=== PATIENT | female | born 1970 | race Caucasian/White ===

== ENCOUNTER 2017-06-29 10:20 | Inpatient (IN) | payer OTHER ==
[~2017-06-29] VITALS: Ht 157.5 cm; Wt 72.2 kg
[2017-06-29 23:00] VITALS: Ht 157.5 cm; Wt 72.2 kg
[2017-06-29 23:03] VITALS: PULSE 77
[2017-06-29 23:08] VITALS: BP 115/62; RESP 19
[2017-06-30] VITALS (12 sets, daily range): BP systolic 95–118; BP diastolic 57–72; PULSE 66–102; RESP 18–19
[2017-06-30] MEDS ORDERED: OMEP20CA16 PO (01:00)
[2017-06-30] MEDS ORDERED: BISACODYL (EC) 5 MG TAB PO PRN (01:00)
[2017-06-30] MEDS ORDERED: DEXAMETHASONE 10 MG/ML 1 ML INJ IV ONE (01:00)
[2017-06-30] MEDS ORDERED: DOCUSATE SODIUM 100 MG CAP PO PRN (01:00)
[2017-06-30] MEDS ORDERED: GABA100C14 PO (01:02)
[2017-06-30] MEDS ORDERED: HYDR200T39 PO (01:04)
[2017-06-30] MEDS ORDERED: MET25 PO (01:05)
[2017-06-30] MEDS ORDERED: PREM625 PO (01:08)
[2017-06-30] MEDS ORDERED: PRED5TAB PO (01:09)
[2017-06-30 01:45] LABS: BASOPHILS % 0.3 % (0.0-2.0); EOSINOPHILS # 0.1 10^3/ul (0.0-0.5); EOSINOPHILS % 0.4 % (0.0-7.0); HEMATOCRIT 43.2 % (37.0-47.0); HEMOGLOBIN 13.9 g/dl (12.0-16.0); LYMPHOCYTES # 1.1 10^3/ul (0.8-2.9); LYMPHOCYTES % 8.8 % (15.0-51.0); MEAN CORPUSCULAR HEMOGLOBIN 29.1 pg (29.0-33.0); MEAN CORPUSCULAR HGB CONC 32.2 g/dl (32.0-37.0); MEAN CORPUSCULAR VOLUME 90.4 fl (82.0-101.0); MEAN PLATELET VOLUME 9.2 fl (7.4-10.4); MONOCYTE # 1.4 10^3/ul (0.3-0.9); MONOCYTES % 11.5 % (0.0-11.0); NEUTROPHIL # 9.5 10^3/ul (1.6-7.5); NEUTROPHILS % 77.8 % (39.0-77.0); PLATELET COUNT 224 10^3/UL (140-415); RED BLOOD COUNT 4.78 10^6/ul (4.20-5.40); RED CELL DISTRIBUTION WIDTH 13.2 % (11.5-14.5); WHITE BLOOD COUNT 12.2 10^3/ul (4.8-10.8)
[2017-06-30] MEDS: ONDANSETRON 4 MG INJ IV PRN ×3 (01:56→21:25)
[2017-06-30] MEDS: KETOROLAC 30 MG INJ IV PRN ×3 (01:57→21:26)
[2017-06-30] MEDS: HYDROmorphONE 1 MG/ML SYG IV PRN ×2 (01:58→05:44)
[2017-06-30 02:07] LABS: ALBUMIN 3.7 g/dl (3.3-4.9); ALBUMIN/GLOBULIN RATIO 0.92; BILIRUBIN,INDIRECT 0.5 mg/dl (0-1.1); BILIRUBIN,TOTAL 0.5 mg/dl (0.2-1.3); CALCIUM 9.7 mg/dl (8.4-10.2); CREATININE 0.71 mg/dl (0.44-1.00); POTASSIUM 3.6 mmol/L (3.5-5.1); TOTAL PROTEIN 7.7 g/dl (6.1-8.1)
[2017-06-30 02:37] LABS: THYROID STIMULATING HORMONE 1.84 MIU/L (0.465-4.680)
[2017-06-30 03:04] LABS: C-REACTIVE PROTEIN 4.4 mg/dl (0.0-0.9)
[2017-06-30] MEDS: DEXAMETHASONE 4 MG/ML 1 ML INJ IV SCH ×3 (05:43→21:25)
[2017-06-30] MEDS ORDERED: PANTOPRAZOLE 40 MG INJ IV SCH (06:00)
--- NOTE | 2017-06-30 08:42 | HP ---
Date/Time of Note Date/Time of Note DATE: 06/30/17 TIME: 08:29 Assessment/Plan VTE Prophylaxis VTE Prophylaxis Intervention: SCD's Lines/Catheters IV Catheter Type (from [facility]): Saline Lock Urinary Cath still in place: No Assessment/Plan Chief Complaint/Hosp Course This is a 47 from a being admitted to the telemetry floor for: #1 intractable back pain: Secondary to degenerative disc disease at L4-L5 resulting in moderately severe canal stenosis with crowding of the cauda equina is seen on MRI of the cease and lumbar spine. At the current time patient does not have any symptoms of saddle anesthesia or urinary incontinence. Her pain though is significant. I will start her on Decadron 10 mg IV loading dose along with Decadron 4 mg IV every 8 hours. Will consult neurosurgery, Dr. Aguila for further treatment strategy. IV Dilaudid prn for pain control and Zofran for nausea. #2 rheumatoid arthritis: We will obtain a fresh set of labs including ESR and CRP. Her lab work from the transferring facility showed ESR level of 18 and a CRP of 4.3. A lactate of 1.4 we will continue patient's home medication dose of methotrexate and Plaquenil though will need to confirm the actual dosages as her records are different from what was provided from [facility]. 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 Hold prednisone right now she is currently on Decadron. #3 DVT and GI prophylaxis: SCDs, Protonix Further treatment strategy will be implemented as per the clinical course Problems: HPI/ROS Admit Date/Time Admit Date/Time Jun 29, 2017 at 10:20 Hx of Present Illness Chief complaint: Back pain This is a 47-year-old female with a past medical history of rheumatoid arthritis diagnosed in 2008 who was transferred from [facility]. Patient was seen there due to severe hand pain, back pain and inability to walk due to pain she had not been able to properly follow up with the rheumatology secondary to insurance issues. She previously was on methotrexate 4 times weekly, [place] 10 mg daily, prednisone 4 mg daily, Plaquenil 300 mg daily. She ran out of her appointment 1 month ago. Her current dosages of her medications is different from what she was on at that time. Will need to confirm dosages or adjust them as indicated. At the current time patient states that she is having difficulty walking and having severe lower back pain. All of [facility] patient had ESR and CRP levels were normal. Imaging studies done with MRIs of the spine C/L-spine which showed no evidence of osteomyelitis discitis or epidural abscess. Cerebellar tonsils extend 5 mm below foramen magnum suggesting borderline Chiari I malformation. Degenerative disc disease at T6-7 that indents the ventral cord surface without cord edema and results in mild canal stenosis. Degenerative disc disease at L4-L5 resulting in moderately severe canal stenosis with crowding of the cauda equina. 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 She was treated at [facility] with morphine 20 mg IV, Ativan 1 mg, Toradol 30 mg and Tylenol 650 mg. This combination of medications did result in somnolence. Patient was considered stable for transfer and she was asked why she was transferred to [facility]. On current examination patient is alert and oriented 3 and she is awake. She is appropriately answering questions. She does state that she has significant amount of lower back pain. She also has pain in her wrist joints. Allergies: NKDA Medications: See HUMPHREY ROS Const: As per HPI Eyes : No pain discharge or redness or change in visual acuity ENT: No pain, sore throat, congestion, congestion, dysphagia or discharge Respiratory: No shortness of breath, cough, sputum, wheezing, or pleuritic pain Cardiovascular: No chest pain, palpitation, PND, or edema GI : no change in appetite, abdominal pain, nausea, vomiting, diarrhea, constipation, or change in the color his stool Genitourinary: No dysuria, hematuria, flank pain , discharge or CVA tenderness Musculoskeletal: As per HPI Skin: No rash, bruising or hives Neuro: No headache, dizziness, syncope, seizure, focal weakness Endocrine: No polyuria, polydipsia, temperature intolerance Psych: No hallucination, depression, anxiety or suicidal ideation PMH/Family/Social Past Medical History Seropositive, nonerosive rheumatoid arthritis Past Surgical History Past Surgical Hx: no surgical history Family History Significant Family History: no pertinent family hx Social History Alcohol Use: none Smoking Status: Never smoker Drug Use: none Exam/Review of Systems Vital Signs Vitals Vital Signs Date Time Temp Pulse Resp B/P Pulse Ox O2 Delivery O2 Flow Rate FiO2 06/30/17 07:42 98.3 73 18 95/57 100 10/5/17 00:00 Nasal Cannula 2.0 Exam Exam General: Patient is a pleasant female lying in moderate distress from pain HEENT: Atraumatic, normocephalic. The pupils are equal, round and reactive. Extraocular motor are intact Neck: Supple with full range of motion. No rigidity or meningismus Chest: Nontender Lungs: Clear to auscultation bilaterally no crackles rales or wheezing Heart: Normal S1-S2, Regular rhythm and rate. No murmur, S3, or S4 Abdomen: Soft , nontender, nondistended , bowel sounds are present. No guarding no rebound tenderness , Extremities: Bilateral wrist pain, mild warmth noted at the wrists bilaterally Neurologic: Normal mental status, speech normal, cranial nerves II through XII are intact, motor and sensory are intact, no focal weakness, no urinary incontinence, no saddle anesthesia musculoskeletal: Tenderness to palpation along the lower lumbar spine, no palpable step-off Additional Comments MRI imaging studies results: MRIs of the spine C/L-spine which showed no evidence of osteomyelitis discitis or epidural abscess. Cerebellar tonsils extend 5 mm below foramen magnum suggesting borderline Chiari I malformation. Degenerative disc disease at T6-7 that indents the ventral cord surface without cord edema and results in mild canal stenosis. Degenerative disc disease at L4-L5 resulting in moderately severe canal stenosis with crowding of the cauda equina. 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 please see transfer augmentation further information as well as CD with imaging studies ESR transferring facility 18, CRP 4.3 please see transfer recommendation further lab results Labs Result Diagram: 06/30/17 0130 06/30/17 0130 Medications Medications Current Medications Ondansetron HCl (Zofran Inj) 4 mg Q6H PRN IV NAUSEA AND/OR VOMITING Last administered on 06/30/17 01:56; Admin Dose 4 MG; Start 06/30/17 at 01:00 Acetaminophen (Tylenol Tab) 650 mg Q6H PRN PO PAIN LEVEL 1-3 OR FEVER; Start 06/30/17 at 01:00 Hydromorphone HCl (Dilaudid) 0.5 mg Q4H PRN IV PAIN LEVEL 7-10 Last administered on 06/30/17 05:44; Admin Dose 0.5 MG; Start 06/30/17 at 01:00 Docusate Sodium (Colace) 100 mg Q12H PRN PO CONSTIPATION; Start 06/30/17 at 01: 00 Bisacodyl (Dulcolax) 5 mg DAILY PRN PO CONSTIPATION; Start 06/30/17 at 01:00 Pantoprazole (Protonix Iv) 40 mg DAILY@06 IV Last administered on 06/30/17 05: 43; Admin Dose 40 MG; Start 06/30/17 at 06:00 Dexamethasone (Decadron) 4 mg Q8 IV Last administered on 06/30/17 05:43; Admin Dose 4 MG; Start 06/30/17 at 06:00 Ketorolac Tromethamine (Toradol) 30 mg Q6H PRN IV PAIN Last administered on 01:57; Admin Dose 30 MG; Start 06/30/17 at 01:00; Stop 07/03/17 at 00:59 Miscellaneous Information Patients own medicat... BID@16 XX ; Start 06/30/17 at 10:00 BAHMAN GIBSON Jun 30, 2017 08:41
[2017-06-30] MEDS: HYDROXYCHLOROQUINE 200 MG TAB PO SCH ×2 (10:26→21:25)
[2017-06-30] MEDS: ACETAMINOPHEN 325 MG TAB PO PRN (11:40)
[2017-06-30] MEDS: ESTROGENS CONJUGATED 0.625 MG TAB PO SCH (17:30)
[2017-07-01] VITALS (12 sets, daily range): BP systolic 90–125; BP diastolic 51–70; PULSE 64–80; RESP 17–20
[2017-07-01 06:04] LABS: BASOPHILS % 0.1 % (0.0-2.0); HEMOGLOBIN 12.8 g/dl (12.0-16.0); LYMPHOCYTES # 0.6 10^3/ul (0.8-2.9); LYMPHOCYTES % 3.1 % (15.0-51.0); MEAN CORPUSCULAR HEMOGLOBIN 28.1 pg (29.0-33.0); MEAN CORPUSCULAR HGB CONC 32.8 g/dl (32.0-37.0); MEAN CORPUSCULAR VOLUME 85.7 fl (82.0-101.0); MEAN PLATELET VOLUME 9.7 fl (7.4-10.4); MONOCYTE # 0.9 10^3/ul (0.3-0.9); MONOCYTES % 4.5 % (0.0-11.0); NEUTROPHIL # 18.4 10^3/ul (1.6-7.5); NEUTROPHILS % 91.5 % (39.0-77.0); PLATELET COUNT 259 10^3/UL (140-415); RED BLOOD COUNT 4.55 10^6/ul (4.20-5.40); RED CELL DISTRIBUTION WIDTH 12.7 % (11.5-14.5); WHITE BLOOD COUNT 20.1 10^3/ul (4.8-10.8)
[2017-07-01] MEDS: PANTOPRAZOLE (EC) 40 MG TAB PO SCH (06:11)
[2017-07-01] MEDS: DEXAMETHASONE 4 MG/ML 1 ML INJ IV SCH ×3 (06:11→21:20)
[2017-07-01 06:30] LABS: MAGNESIUM 2.1 mg/dl (1.7-2.5); PHOSPHORUS 3.7 mg/dl (2.5-4.9)
[2017-07-01] MEDS ORDERED: KETOROLAC 30 MG INJ IV ONE (06:39)
[2017-07-01 06:41] LABS: ALBUMIN 3.6 g/dl (3.3-4.9); ALBUMIN/GLOBULIN RATIO 0.87; BILIRUBIN,INDIRECT 0.2 mg/dl (0-1.1); BILIRUBIN,TOTAL 0.2 mg/dl (0.2-1.3); CALCIUM 9.8 mg/dl (8.4-10.2); CREATININE 0.85 mg/dl (0.44-1.00); POTASSIUM 3.7 mmol/L (3.5-5.1); TOTAL PROTEIN 7.7 g/dl (6.1-8.1)
[2017-07-01] MEDS: METOCLOPRAMIDE 10 MG INJ IV PRN ×3 (06:52→21:20)
[2017-07-01] MEDS: HYDROXYCHLOROQUINE 200 MG TAB PO SCH ×2 (08:17→21:20)
[2017-07-01] MEDS: ESTROGENS CONJUGATED 0.625 MG TAB PO SCH (08:17)
[2017-07-01 08:35] LABS: THYROID STIMULATING HORMONE 0.32 MIU/L (0.465-4.680)
[2017-07-01] MEDS ORDERED: METHOTREXATE 2.5 MG TAB PO SCH (09:00)
[2017-07-01] MEDS: HYDROmorphONE 1 MG/ML SYG IV PRN ×2 (10:45→20:17)
--- NOTE | 2017-07-01 13:20 | PN ---
Date/Time of Note Date/Time of Note DATE: 07/01/17 TIME: 13:20 Assessment/Plan VTE Prophylaxis VTE Prophylaxis Intervention: SCD's Lines/Catheters IV Catheter Type (from Nrsg): Saline Lock Urinary Cath still in place: No Assessment/Plan Assessment/Plan #1 intractable back pain: Secondary to degenerative disc disease at L4-L5 resulting in moderately severe canal stenosis with crowding of the cauda equina is seen on MRI of the cease and lumbar spine. At the current time patient does not have any symptoms of saddle anesthesia or urinary incontinence. Her pain though is significant. continue Decadron 4 mg IV every 8 hours. I left a message on office on [phone] for consultation and evaluation for Abnormal MRI findings, Pt primary Nurse also left a message with Office in AM- will wait for evaluation pain control with IV pain meds,, will wait for PT consult after neurosurgery evaluation. #2 rheumatoid arthritis: pt was on prednisone at home but here currently she is on dexamethasone 4mg IV 8 hr so we will hold off on prednisone, will resume her home dose fo methotrexate and Folic acid along with multivitamind #3 DVT and GI prophylaxis: SCDs, Protonix Subjective 24 Hr Interval Summary Free Text/Dictation c/o back pain, not able to walk, she wants to resume her methotrexate and folic acid with MVI, awaiting neurosurgery consultation by Exam/Review of Systems Vital Signs Vitals Vital Signs Date Time Temp Pulse Resp B/P Pulse Ox O2 Delivery O2 Flow Rate FiO2 07/01/17 12:39 64 07/01/17 11:35 98.3 19 100/61 95 06/30/17 22:20 Nasal Cannula 2.0 Intake and Output 06/30/17 06/30/17 07/01/17 14:59 22:59 06:59 Intake Total 400 ml 900 ml Output Total 950 ml Balance 400 ml -50 ml Exam General: Patient is a pleasant female lying in moderate distress from pain HEENT: Atraumatic, normocephalic. The pupils are equal, round and reactive. Extraocular motor are intact Lungs: Clear to auscultation bilaterally no crackles rales or wheezing Heart: Normal S1-S2, Regular rhythm and rate. No murmur, S3, or S4 Abdomen: Soft , nontender, nondistended , bowel sounds are present. No guarding no rebound tenderness , Extremities: Bilateral wrist pain, mild warmth noted at the wrists bilaterally Neurologic: Normal mental status, speech normal, cranial nerves II through XII are intact, motor and sensory are intact, no focal weakness, no urinary incontinence, no saddle anesthesia musculoskeletal: Tenderness to palpation along the lower lumbar spine, no palpable step-off Results Result Diagram: 07/01/1752707/01/17527 Results 24 hrs Laboratory Tests Test 07/01/17 05:28 White Blood Count 20.1 #H Red Blood Count 4.55 Hemoglobin 12.8 Hematocrit 39.0 Mean Corpuscular Volume 85.7 Mean Corpuscular Hemoglobin 28.1 L Mean Corpuscular Hemoglobin Concent 32.8 Red Cell Distribution Width 12.7 Platelet Count 259 Mean Platelet Volume 9.7 Neutrophils % 91.5 H Lymphocytes % 3.1 L Monocytes % 4.5 Eosinophils % 0.0 Basophils % 0.1 Nucleated Red Blood Cells % 0.0 Neutrophils # 18.4 H Lymphocytes # 0.6 L Monocytes # 0.9 Eosinophils # 0.0 Basophils # 0.0 Nucleated Red Blood Cells # 0.0 Sodium Level 135 Potassium Level 3.7 Chloride Level 99 Carbon Dioxide Level 30 Anion Gap 10 Blood Urea Nitrogen 24 #H Creatinine 0.85 Glucose Level 141 # Hemoglobin A1c 5.4 Calcium Level 9.8 Phosphorus Level 3.7 Magnesium Level 2.1 Total Bilirubin 0.2 Direct Bilirubin 0.00 Indirect Bilirubin 0.2 Aspartate Amino Transf (AST/SGOT) 38 Alanine Aminotransferase (ALT/SGPT) 48 Alkaline Phosphatase 91 Total Protein 7.7 Albumin 3.6 Globulin 4.10 H Albumin/Globulin Ratio 0.87 Triglycerides Level 84 Cholesterol Level 240 H LDL Cholesterol, Calculated 164 HDL Cholesterol 59 Cholesterol/HDL Ratio 4.0 Thyroid Stimulating Hormone (TSH) 0.320 L Medications Medications Current Medications Ondansetron HCl (Zofran Inj) 4 mg Q6H PRN IV NAUSEA AND/OR VOMITING Last administered on 06/30/17 21:25; Admin Dose 4 MG; Start 06/30/17 at 01:00 Acetaminophen (Tylenol Tab) 650 mg Q6H PRN PO PAIN LEVEL 1-3 OR FEVER Last administered on 06/30/17 11:40; Admin Dose 650 MG; Start 06/30/17 at 01:00 Hydromorphone HCl (Dilaudid) 0.5 mg Q4H PRN IV PAIN LEVEL 7-10 Last administered on 07/01/17 10:45; Admin Dose 0.5 MG; Start 06/30/17 at 01:00 Docusate Sodium (Colace) 100 mg Q12H PRN PO CONSTIPATION; Start 06/30/17 at 01: 00 Bisacodyl (Dulcolax) 5 mg DAILY PRN PO CONSTIPATION; Start 06/30/17 at 01:00 Dexamethasone (Decadron) 4 mg Q8 IV Last administered on 07/01/17 06:11; Admin Dose 4 MG; Start 06/30/17 at 06:00 Ketorolac Tromethamine (Toradol) 30 mg Q6H PRN IV PAIN Last administered on 21:26; Admin Dose 30 MG; Start 06/30/17 at 01:00; Stop 07/03/17 at 00:59 Miscellaneous Information Patients own medicat... BID@ XX ; Start 06/30/17 at 10:00 Estrogens Conjugated (Premarin) 0.625 mg DAILY PO Last administered on 08:17; Admin Dose 0.625 MG; Start 06/30/17 at 10:00 Hydroxychloroquine Sulfate (Plaquenil) 200 mg BID PO Last administered on 08:17; Admin Dose 200 MG; Start 06/30/17 at 10:00 Pantoprazole (Protonix Tab) 40 mg DAILY@06 PO Last administered on 07/01/17 06 :11; Admin Dose 40 MG; Start 07/01/17 at 06:00 Metoclopramide HCl (Reglan) 10 mg Q6H PRN IV NAUSEA Last administered on 06:52; Admin Dose 10 MG; Start 07/01/17 at 07:00 Methotrexate (Methotrexate) 12.5 mg ONCE PO ; Start 07/02/17 at 09:00; Status UNV Gabapentin (Neurontin) 100 mg TID PO ; Start 07/01/17 at 21:00; Status UNV Folic Acid (Folic Acid) 1 mg DAILY PO ; Start 07/02/17 at 09:00; Status UNV ROMERO CHAO MD Jul 01, 2017 13:20
[2017-07-01] MEDS ORDERED: FOLIC ACID 1 MG TAB PO ONE (13:30)
[2017-07-01] MEDS: GABAPENTIN 100 MG CAP PO SCH ×2 (13:59→21:20)
[2017-07-01] MEDS: FOLIC ACID 1 MG TAB PO SCH (13:59)
[2017-07-01] MEDS: MULTIVITAMINS THERAPEUTIC TAB PO SCH (13:59)
[2017-07-02] VITALS (11 sets, daily range): BP systolic 98–128; BP diastolic 56–64; PULSE 60–69; RESP 16–19
[2017-07-02] MEDS: METOCLOPRAMIDE 10 MG INJ IV PRN (05:23)
[2017-07-02] MEDS: PANTOPRAZOLE (EC) 40 MG TAB PO SCH (05:23)
[2017-07-02] MEDS: DEXAMETHASONE 4 MG/ML 1 ML INJ IV SCH ×3 (05:23→22:02)
[2017-07-02 07:21] LABS: ABNORMAL IP MESSAGE 1; BASOPHILS % 0.1 % (0.0-2.0); HEMATOCRIT 38.5 % (37.0-47.0); HEMOGLOBIN 12.7 g/dl (12.0-16.0); LYMPHOCYTES # 0.6 10^3/ul (0.8-2.9); LYMPHOCYTES % 3.9 % (15.0-51.0); MEAN CORPUSCULAR HEMOGLOBIN 28.9 pg (29.0-33.0); MEAN CORPUSCULAR VOLUME 87.5 fl (82.0-101.0); MEAN PLATELET VOLUME 9.5 fl (7.4-10.4); MONOCYTE # 0.7 10^3/ul (0.3-0.9); MONOCYTES % 4.8 % (0.0-11.0); NEUTROPHIL # 12.6 10^3/ul (1.6-7.5); NEUTROPHILS % 90.3 % (39.0-77.0); PLATELET COUNT 277 10^3/UL (140-415); RED CELL DISTRIBUTION WIDTH 12.5 % (11.5-14.5)
[2017-07-02 07:25] LABS: POSITIVE DIFF @See below
[2017-07-02 07:34] LABS: ALBUMIN 3.5 g/dl (3.3-4.9); ALBUMIN/GLOBULIN RATIO 0.89; BILIRUBIN,INDIRECT 0.2 mg/dl (0-1.1); BILIRUBIN,TOTAL 0.2 mg/dl (0.2-1.3); CALCIUM 9.4 mg/dl (8.4-10.2); CREATININE 0.77 mg/dl (0.44-1.00); POTASSIUM 4.4 mmol/L (3.5-5.1); TOTAL PROTEIN 7.4 g/dl (6.1-8.1)
[2017-07-02 07:36] LABS: INR 0.91; PROTIME 12.2 Sec (12.2-14.2)
[2017-07-02 07:38] LABS: PARTIAL THROMBOPLASTIN TIME 20.8 Sec (25.0-35.0)
[2017-07-02] MEDS: HYDROmorphONE 1 MG/ML SYG IV PRN ×3 (07:57→18:47)
[2017-07-02] MEDS: MULTIVITAMINS THERAPEUTIC TAB PO SCH (07:58)
[2017-07-02] MEDS: FOLIC ACID 1 MG TAB PO SCH (07:58)
[2017-07-02] MEDS: ESTROGENS CONJUGATED 0.625 MG TAB PO SCH (07:59)
[2017-07-02] MEDS: HYDROXYCHLOROQUINE 200 MG TAB PO SCH ×2 (07:59→20:44)
[2017-07-02] MEDS: GABAPENTIN 100 MG CAP PO SCH ×3 (08:00→20:44)
[2017-07-02] MEDS ORDERED: FOLIC ACID 1 MG TAB PO SCH (09:00)
[2017-07-02] MEDS ORDERED: METHOTREXATE 2.5 MG TAB PO SCH (09:00)
[2017-07-02] MEDS: KETOROLAC 30 MG INJ IV PRN (11:44)
--- NOTE | 2017-07-02 12:35 | CONS ---
Date/Time of Note Date/Time of Note DATE: 07/02/17 TIME: 12:24 Assessment/Plan Assessment/Plan Additional Assessment/Plan Back pain radiating to both thighs without neurologic deficit. Report of L4-5 stenosis. History of RA. Since no imaging is available for review, we will repeat MRI of the lumbar and cervical spine. In the meantime the patient is being treated for presumptive RA flare. Consultation Date/Type/Reason Admit Date/Time Jun 29, 2017 at 10:20 Date of Consultation: Jul 02, 2017 Type of Consultation: Neurological surgery Reason for Consultation back pain, report from outside hospital of possible Chiari 1 malformation and L4 -5 stenosis.Pain is 8-9/ 10 and predominantly in the back, though she complains of some radiatoin to bilateral keturah-lateral thighs- not buttocks, hamstrings, calves or feet. She denies any bowel or bladder complaints. She complains of intermittent numbness of both legs in a stocking type (non-dermatomal) distribution. Hx of Present Illness 47 year old female with 11 year hx of RA, has c/p LBP since . Admitted OSH for same -> MRI shows by report L4-5 stenosis. Pt transfer for spine surgery eval. MRI not sent with patient. Past Surgical History Past Surgical Hx: no surgical history Social History Alcohol Use: none Smoking Status: Never smoker Drug Use: none Exam/Review of Systems Vital Signs Vitals Vital Signs Date Time Temp Pulse Resp B/P Pulse Ox O2 Delivery O2 Flow Rate FiO2 07/02/17 11:48 98.2 67 19 111/59 96 06/30/17 22:20 Nasal Cannula 2.0 Intake and Output 07/01/17 07/01/17 07/02/17 15:00 23:00 07:00 Intake Total 500 ml 800 ml 1200 ml Balance 500 ml 800 ml 1200 ml Exam [id number] PERRL EOMI FACE= TML GRIFFIN 5/5. pain limited. +SLR bilaterally. Sensory exam intact to light touch and proprioception bilaterally Ambulates to bathroom but assessment of gait deferred. Constitutional: alert, oriented Psych: nl mood/affect, no complaints Head: atraumatic, normocephalic Eyes: EOMI, nl conjunctiva, nl lids, nl sclera ENMT: nl external ears & nose, nl lips & teeth, nl nasal mucosa & septum Neck: supple Musculoskeletal: joint tenderness, nl extremities to inspection Neurological: MILEAGE CLERK 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, nl mental status Results Result Diagram: 07/02/17 0654 07/02/17 0654 Results 24 hrs Laboratory Tests Test 07/02/17 06:54 White Blood Count 14.0 #H Red Blood Count 4.40 Hemoglobin 12.7 Hematocrit 38.5 Mean Corpuscular Volume 87.5 Mean Corpuscular Hemoglobin 28.9 L Mean Corpuscular Hemoglobin Concent 33.0 Red Cell Distribution Width 12.5 Platelet Count 277 Mean Platelet Volume 9.5 Neutrophils % 90.3 H Lymphocytes % 3.9 L Monocytes % 4.8 Eosinophils % 0.0 Basophils % 0.1 Nucleated Red Blood Cells % 0.0 Neutrophils # 12.6 H Lymphocytes # 0.6 L Monocytes # 0.7 Eosinophils # 0.0 Basophils # 0.0 Nucleated Red Blood Cells # 0.0 Prothrombin Time 12.2 Prothrombin Time Ratio 1.0 INR International Normalized Ratio 0.91 Activated Partial Thromboplast Time 20.8 L Sodium Level 138 Potassium Level 4.4 Chloride Level 103 Carbon Dioxide Level 30 Anion Gap 9 Blood Urea Nitrogen 22 H Creatinine 0.77 Glucose Level 137 Calcium Level 9.4 Total Bilirubin 0.2 Direct Bilirubin 0.00 Indirect Bilirubin 0.2 Aspartate Amino Transf (AST/SGOT) 24 Alanine Aminotransferase (ALT/SGPT) 38 Alkaline Phosphatase 68 Total Protein 7.4 Albumin 3.5 Globulin 3.90 H Albumin/Globulin Ratio 0.89 Medications Medications Current Medications Ondansetron HCl (Zofran Inj) 4 mg Q6H PRN IV NAUSEA AND/OR VOMITING Last administered on 06/30/17 21:25; Admin Dose 4 MG; Start 06/30/17 at 01:00 Acetaminophen (Tylenol Tab) 650 mg Q6H PRN PO PAIN LEVEL 1-3 OR FEVER Last administered on 06/30/17 11:40; Admin Dose 650 MG; Start 06/30/17 at 01:00 Hydromorphone HCl (Dilaudid) 0.5 mg Q4H PRN IV PAIN LEVEL 7-10 Last administered on 07/02/17 07:57; Admin Dose 0.5 MG; Start 06/30/17 at 01:00 Docusate Sodium (Colace) 100 mg Q12H PRN PO CONSTIPATION; Start 06/30/17 at 01: 00 Bisacodyl (Dulcolax) 5 mg DAILY PRN PO CONSTIPATION; Start 06/30/17 at 01:00 Dexamethasone (Decadron) 4 mg Q8 IV Last administered on 07/02/17 05:23; Admin Dose 4 MG; Start 06/30/17 at 06:00 Ketorolac Tromethamine (Toradol) 30 mg Q6H PRN IV PAIN Last administered on 11:44; Admin Dose 30 MG; Start 06/30/17 at 01:00; Stop 07/03/17 at 00:59 Miscellaneous Information Patients own medicat... BID@10,16 XX ; Start 06/30/17 at 10:00 Estrogens Conjugated (Premarin) 0.625 mg DAILY PO Last administered on 07:59; Admin Dose 0.625 MG; Start 06/30/17 at 10:00 Hydroxychloroquine Sulfate (Plaquenil) 200 mg BID PO Last administered on 07:59; Admin Dose 200 MG; Start 06/30/17 at 10:00 Pantoprazole (Protonix Tab) 40 mg DAILY@06 PO Last administered on 07/02/17 05 :23; Admin Dose 40 MG; Start 07/01/17 at 06:00 Metoclopramide HCl (Reglan) 10 mg Q6H PRN IV NAUSEA Last administered on 05:23; Admin Dose 10 MG; Start 07/01/17 at 07:00 Gabapentin (Neurontin) 100 mg TID PO Last administered on 07/02/17 08:00; Admin Dose 100 MG; Start 07/01/17 at 13:46 Folic Acid (Folic Acid) 1 mg DAILY PO Last administered on 07/02/17 07:58; Admin Dose 1 MG; Start 07/01/17 at 13:46 Multivitamins Therapeutic (Theragran) 1 tab DAILY PO Last administered on 07:58; Admin Dose 1 TAB; Start 07/01/17 at 13:30 JUSTINE FRY MD Jul 02, 2017 12:35
--- NOTE | 2017-07-02 15:24 | PN ---
Date/Time of Note Date/Time of Note DATE: 07/02/17 TIME: 15:22 Assessment/Plan VTE Prophylaxis VTE Prophylaxis Intervention: SCD's Lines/Catheters IV Catheter Type (from Nrsg): Saline Lock Urinary Cath still in place: No Assessment/Plan Assessment/Plan #1 intractable back pain: Secondary to degenerative disc disease at L4-L5 resulting in moderately severe canal stenosis with crowding of the cauda equina is seen on MRI of the cease and lumbar spine. At the current time patient does not have any symptoms of saddle anesthesia or urinary incontinence. Her pain though is significant. continue Decadron 4 mg IV every 8 hours. s/p consultation by - want to have repeat MRI LS Spine to better assess spinal stenosis and cord. pain control with IV pain meds,, will wait for PT consult after neurosurgery evaluation. #2 rheumatoid arthritis: pt was on prednisone at home but here currently she is on dexamethasone 4mg IV 8 hr so we will hold off on prednisone, will resume her home dose fo methotrexate and Folic acid along with multivitamind #3 DVT and GI prophylaxis: SCDs, Protonix Subjective 24 Hr Interval Summary Free Text/Dictation pt stable still c/o pain in lower back and cervical pain Exam/Review of Systems Vital Signs Vitals Vital Signs Date Time Temp Pulse Resp B/P Pulse Ox O2 Delivery O2 Flow Rate FiO2 07/02/17 12:11 64 07/02/17 11:48 98.2 19 111/59 96 06/30/17 22:20 Nasal Cannula 2.0 Intake and Output 07/01/17 07/01/17 07/02/17 15:00 23:00 07:00 Intake Total 500 ml 800 ml 1200 ml Balance 500 ml 800 ml 1200 ml Exam Constitutional: alert Psych: no complaints Head: normocephalic ENMT: nl external ears & nose Neck: non-tender, supple Respiratory: clear to auscultation, diminished breath sounds, normal air movement Cardiovascular: nl pulses, regular rate and rhythm Gastrointestinal: non-tender, soft Musculoskeletal: muscle weakness, nl extremities to inspection, nl gait and stance, range of motion (limited due to back pain ) Extremities: tenderness Neurological: 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, nl mental status, nl speech, nl strength Skin: nl turgor Lymph: nl lymph nodes Results Result Diagram: 10/7/17 0654 10/7/17 0654 Results 24 hrs Laboratory Tests Test 07/02/17 06:54 White Blood Count 14.0 #H Red Blood Count 4.40 Hemoglobin 12.7 Hematocrit 38.5 Mean Corpuscular Volume 87.5 Mean Corpuscular Hemoglobin 28.9 L Mean Corpuscular Hemoglobin Concent 33.0 Red Cell Distribution Width 12.5 Platelet Count 277 Mean Platelet Volume 9.5 Neutrophils % 90.3 H Lymphocytes % 3.9 L Monocytes % 4.8 Eosinophils % 0.0 Basophils % 0.1 Nucleated Red Blood Cells % 0.0 Neutrophils # 12.6 H Lymphocytes # 0.6 L Monocytes # 0.7 Eosinophils # 0.0 Basophils # 0.0 Nucleated Red Blood Cells # 0.0 Prothrombin Time 12.2 Prothrombin Time Ratio 1.0 INR International Normalized Ratio 0.91 Activated Partial Thromboplast Time 20.8 L Sodium Level 138 Potassium Level 4.4 Chloride Level 103 Carbon Dioxide Level 30 Anion Gap 9 Blood Urea Nitrogen 22 H Creatinine 0.77 Glucose Level 137 Calcium Level 9.4 Total Bilirubin 0.2 Direct Bilirubin 0.00 Indirect Bilirubin 0.2 Aspartate Amino Transf (AST/SGOT) 24 Alanine Aminotransferase (ALT/SGPT) 38 Alkaline Phosphatase 68 Total Protein 7.4 Albumin 3.5 Globulin 3.90 H Albumin/Globulin Ratio 0.89 Medications Medications Current Medications Ondansetron HCl (Zofran Inj) 4 mg Q6H PRN IV NAUSEA AND/OR VOMITING Last administered on 06/30/17 21:25; Admin Dose 4 MG; Start 06/30/17 at 01:00 Acetaminophen (Tylenol Tab) 650 mg Q6H PRN PO PAIN LEVEL 1-3 OR FEVER Last administered on 06/30/17 11:40; Admin Dose 650 MG; Start 06/30/17 at 01:00 Hydromorphone HCl (Dilaudid) 0.5 mg Q4H PRN IV PAIN LEVEL 7-10 Last administered on 07/02/17 13:32; Admin Dose 0.5 MG; Start 06/30/17 at 01:00 Docusate Sodium (Colace) 100 mg Q12H PRN PO CONSTIPATION; Start 06/30/17 at 01: 00 Bisacodyl (Dulcolax) 5 mg DAILY PRN PO CONSTIPATION; Start 06/30/17 at 01:00 Dexamethasone (Decadron) 4 mg Q8 IV Last administered on 07/02/17 13:32; Admin Dose 4 MG; Start 06/30/17 at 06:00 Ketorolac Tromethamine (Toradol) 30 mg Q6H PRN IV PAIN Last administered on 11:44; Admin Dose 30 MG; Start 06/30/17 at 01:00; Stop 07/03/17 at 00:59 Miscellaneous Information Patients own medicat... BID@,16 XX ; Start 06/30/17 at 10:00 Estrogens Conjugated (Premarin) 0.625 mg DAILY PO Last administered on 07:59; Admin Dose 0.625 MG; Start 06/30/17 at 10:00 Hydroxychloroquine Sulfate (Plaquenil) 200 mg BID PO Last administered on 07:59; Admin Dose 200 MG; Start 06/30/17 at 10:00 Pantoprazole (Protonix Tab) 40 mg DAILY@06 PO Last administered on 07/02/17 05 :23; Admin Dose 40 MG; Start 07/01/17 at 06:00 Metoclopramide HCl (Reglan) 10 mg Q6H PRN IV NAUSEA Last administered on 05:23; Admin Dose 10 MG; Start 07/01/17 at 07:00 Gabapentin (Neurontin) 100 mg TID PO Last administered on 07/02/17 13:32; Admin Dose 100 MG; Start 07/01/17 at 13:46 Folic Acid (Folic Acid) 1 mg DAILY PO Last administered on 07/02/17 07:58; Admin Dose 1 MG; Start 07/01/17 at 13:46 Multivitamins Therapeutic (Theragran) 1 tab DAILY PO Last administered on 07:58; Admin Dose 1 TAB; Start 07/01/17 at 13:30 ROMERO CHAO MD Jul 02, 2017 15:23
[2017-07-03] VITALS (10 sets, daily range): BP systolic 102–117; BP diastolic 60–74; PULSE 57–69; RESP 15–65
[2017-07-03] MEDS: DEXAMETHASONE 4 MG/ML 1 ML INJ IV SCH ×3 (05:43→22:08)
[2017-07-03] MEDS: PANTOPRAZOLE (EC) 40 MG TAB PO SCH (05:43)
[2017-07-03 07:20] LABS: HEMATOCRIT 38.7 % (37.0-47.0); HEMOGLOBIN 12.4 g/dl (12.0-16.0); LYMPHOCYTES # 0.7 10^3/ul (0.8-2.9); MEAN CORPUSCULAR HEMOGLOBIN 27.9 pg (29.0-33.0); MEAN CORPUSCULAR VOLUME 87.2 fl (82.0-101.0); MEAN PLATELET VOLUME 9.4 fl (7.4-10.4); MONOCYTE # 0.9 10^3/ul (0.3-0.9); MONOCYTES % 7.3 % (0.0-11.0); NEUTROPHIL # 10.3 10^3/ul (1.6-7.5); NEUTROPHILS % 85.9 % (39.0-77.0); PLATELET COUNT 279 10^3/UL (140-415); RED BLOOD COUNT 4.44 10^6/ul (4.20-5.40); RED CELL DISTRIBUTION WIDTH 12.9 % (11.5-14.5); WHITE BLOOD COUNT 11.9 10^3/ul (4.8-10.8)
[2017-07-03 07:32] LABS: ALBUMIN 3.6 g/dl (3.3-4.9); BILIRUBIN,INDIRECT 0.2 mg/dl (0-1.1); BILIRUBIN,TOTAL 0.2 mg/dl (0.2-1.3); CALCIUM 8.9 mg/dl (8.4-10.2); CREATININE 0.67 mg/dl (0.44-1.00); POTASSIUM 4.3 mmol/L (3.5-5.1); TOTAL PROTEIN 7.2 g/dl (6.1-8.1)
[2017-07-03] MEDS: ESTROGENS CONJUGATED 0.625 MG TAB PO SCH (07:48)
[2017-07-03] MEDS: GABAPENTIN 100 MG CAP PO SCH ×3 (07:48→20:39)
[2017-07-03] MEDS: FOLIC ACID 1 MG TAB PO SCH (07:48)
[2017-07-03] MEDS: MULTIVITAMINS THERAPEUTIC TAB PO SCH (07:48)
[2017-07-03] MEDS: HYDROXYCHLOROQUINE 200 MG TAB PO SCH ×2 (07:48→20:39)
[2017-07-03] MEDS: HYDROmorphONE 1 MG/ML SYG IV PRN ×3 (07:49→20:03)
--- NOTE | 2017-07-03 12:21 | PN ---
Date/Time of Note Date/Time of Note DATE: 07/03/17 TIME: 12:18 Assessment/Plan VTE Prophylaxis VTE Prophylaxis Intervention: SCD's Lines/Catheters IV Catheter Type (from Nrsg): Saline Lock Urinary Cath still in place: No Assessment/Plan Assessment/Plan #1 intractable back pain: Secondary to degenerative disc disease at L4-L5 resulting in moderately severe canal stenosis with crowding of the cauda equina is seen on MRI of the cease and lumbar spine. At the current time patient does not have any symptoms of saddle anesthesia or urinary incontinence. Her pain though is significant. continue Decadron 4 mg IV every 8 hours. s/p consultation by - want to have repeat MRI LS Spine to better assess spinal stenosis and cord.still pending pain control with IV pain meds,, will wait for PT consult after neurosurgery evaluation. #2 rheumatoid arthritis: pt was on prednisone at home but here currently she is on dexamethasone 4mg IV 8 hr so we will hold off on prednisone, will resume her home dose fo methotrexate and Folic acid along with multivitamind #3 DVT and GI prophylaxis: SCDs, Protonix Subjective 24 Hr Interval Summary Free Text/Dictation c/o back pain very difficult to ambulat due to pain Exam/Review of Systems Vital Signs Vitals Vital Signs Date Time Temp Pulse Resp B/P Pulse Ox O2 Delivery O2 Flow Rate FiO2 07/03/17 12:03 98.0 68 18 106/65 96 06/30/17 22:20 Nasal Cannula 2.0 Intake and Output 07/02/17 07/02/17 07/03/17 15:00 23:00 07:00 Intake Total 600 ml 200 ml Balance 600 ml 200 ml Exam Constitutional: alert Psych: no complaints Head: normocephalic Eyes: nl conjunctiva ENMT: nl external ears & nose, nl lips & teeth Neck: non-tender, supple Respiratory: clear to auscultation, diminished breath sounds, normal air movement Cardiovascular: nl pulses, regular rate and rhythm Gastrointestinal: non-tender, soft Musculoskeletal: muscle tone (decreased on left side ), muscle weakness, nl extremities to inspection, nl gait and stance, spine non-tender (lumbar spine paraspinal tenderness, no midline tenderness ) Neurological: [employer] 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, nl mental status, nl speech, nl strength, other (gait not assessed due to severe pain ) Results Result Diagram: 07/03/17 0657 07/03/17 0657 Results 24 hrs Laboratory Tests Test 07/03/17 06:57 White Blood Count 11.9 H Red Blood Count 4.44 Hemoglobin 12.4 Hematocrit 38.7 Mean Corpuscular Volume 87.2 Mean Corpuscular Hemoglobin 27.9 L Mean Corpuscular Hemoglobin Concent 32.0 Red Cell Distribution Width 12.9 Platelet Count 279 Mean Platelet Volume 9.4 Neutrophils % 85.9 H Lymphocytes % 6.0 L Monocytes % 7.3 Eosinophils % 0.0 Basophils % 0.0 Nucleated Red Blood Cells % 0.0 Neutrophils # 10.3 H Lymphocytes # 0.7 L Monocytes # 0.9 Eosinophils # 0.0 Basophils # 0.0 Nucleated Red Blood Cells # 0.0 Sodium Level 141 Potassium Level 4.3 Chloride Level 109 Carbon Dioxide Level 25 Anion Gap 11 Blood Urea Nitrogen 18 Creatinine 0.67 Glucose Level 131 Calcium Level 8.9 Total Bilirubin 0.2 Direct Bilirubin 0.00 Indirect Bilirubin 0.2 Aspartate Amino Transf (AST/SGOT) 20 Alanine Aminotransferase (ALT/SGPT) 40 Alkaline Phosphatase 74 Total Protein 7.2 Albumin 3.6 Globulin 3.60 H Albumin/Globulin Ratio 1.00 Medications Medications Current Medications Ondansetron HCl (Zofran Inj) 4 mg Q6H PRN IV NAUSEA AND/OR VOMITING Last administered on 06/30/17 21:25; Admin Dose 4 MG; Start 06/30/17 at 01:00 Acetaminophen (Tylenol Tab) 650 mg Q6H PRN PO PAIN LEVEL 1-3 OR FEVER Last administered on 06/30/17 11:40; Admin Dose 650 MG; Start 06/30/17 at 01:00 Hydromorphone HCl (Dilaudid) 0.5 mg Q4H PRN IV PAIN LEVEL 7-10 Last administered on 07/03/17 07:49; Admin Dose 0.5 MG; Start 06/30/17 at 01:00 Docusate Sodium (Colace) 100 mg Q12H PRN PO CONSTIPATION; Start 06/30/17 at 01: 00 Bisacodyl (Dulcolax) 5 mg DAILY PRN PO CONSTIPATION; Start 06/30/17 at 01:00 Dexamethasone (Decadron) 4 mg Q8 IV Last administered on 07/03/17 05:43; Admin Dose 4 MG; Start 06/30/17 at 06:00 Miscellaneous Information Patients own medicat... BID@10,16 XX ; Start 06/30/17 at 10:00 Estrogens Conjugated (Premarin) 0.625 mg DAILY PO Last administered on 07:48; Admin Dose 0.625 MG; Start 06/30/17 at 10:00 Hydroxychloroquine Sulfate (Plaquenil) 200 mg BID PO Last administered on 07:48; Admin Dose 200 MG; Start 06/30/17 at 10:00 Pantoprazole (Protonix Tab) 40 mg DAILY@06 PO Last administered on 07/03/17 05 :43; Admin Dose 40 MG; Start 07/01/17 at 06:00 Metoclopramide HCl (Reglan) 10 mg Q6H PRN IV NAUSEA Last administered on 05:23; Admin Dose 10 MG; Start 07/01/17 at 07:00 Gabapentin (Neurontin) 100 mg TID PO Last administered on 07/03/17 07:48; Admin Dose 100 MG; Start 07/01/17 at 13:46 Folic Acid (Folic Acid) 1 mg DAILY PO Last administered on 07/03/17 07:48; Admin Dose 1 MG; Start 07/01/17 at 13:46 Multivitamins Therapeutic (Theragran) 1 tab DAILY PO Last administered on 07:48; Admin Dose 1 TAB; Start 07/01/17 at 13:30 ROMERO CHAO MD Jul 03, 2017 12:21
[2017-07-04] VITALS (13 sets, daily range): BP systolic 101–120; BP diastolic 62–71; PULSE 58–69; RESP 16–19
[2017-07-04] MEDS: PANTOPRAZOLE (EC) 40 MG TAB PO SCH (05:56)
[2017-07-04] MEDS: DEXAMETHASONE 4 MG/ML 1 ML INJ IV SCH ×3 (05:56→22:12)
[2017-07-04] MEDS: HYDROmorphONE 1 MG/ML SYG IV PRN ×4 (08:00→22:24)
[2017-07-04 09:01] LABS: BASOPHILS % 0.3 % (0.0-2.0); HEMATOCRIT 41.4 % (37.0-47.0); HEMOGLOBIN 13.6 g/dl (12.0-16.0); LYMPHOCYTES # 0.9 10^3/ul (0.8-2.9); LYMPHOCYTES % 7.5 % (15.0-51.0); MEAN CORPUSCULAR HEMOGLOBIN 28.9 pg (29.0-33.0); MEAN CORPUSCULAR HGB CONC 32.9 g/dl (32.0-37.0); MEAN CORPUSCULAR VOLUME 88.1 fl (82.0-101.0); MEAN PLATELET VOLUME 9.4 fl (7.4-10.4); MONOCYTE # 0.6 10^3/ul (0.3-0.9); MONOCYTES % 5.6 % (0.0-11.0); NEUTROPHIL # 9.4 10^3/ul (1.6-7.5); NEUTROPHILS % 83.2 % (39.0-77.0); PLATELET COUNT 303 10^3/UL (140-415); RED CELL DISTRIBUTION WIDTH 12.5 % (11.5-14.5); WHITE BLOOD COUNT 11.3 10^3/ul (4.8-10.8)
[2017-07-04 09:02] LABS: INR 0.89; PT RATIO 0.9
[2017-07-04 09:09] LABS: ALBUMIN 3.3 g/dl (3.3-4.9); ALBUMIN/GLOBULIN RATIO 0.89; BILIRUBIN,INDIRECT 0.1 mg/dl (0-1.1); BILIRUBIN,TOTAL 0.1 mg/dl (0.2-1.3); CALCIUM 9.6 mg/dl (8.4-10.2); CREATININE 0.71 mg/dl (0.44-1.00); POTASSIUM 4.5 mmol/L (3.5-5.1)
--- NOTE | 2017-07-04 09:48 | RADRPT ---
PROCEDURE: MR Lumbar Spine. CLINICAL INDICATION: Intractable pain, post neurosurgery TECHNIQUE: An MRI of the lumbar spine was performed utilizing the following sequences: Sagittal T 1 weighted, axial proton density, sagittal and axial T2 weighted, and sagittal T2 inversion recovery COMPARISON: 06/28/2017 FINDINGS: There is normal lordosis of the lumbar spine. No vertebral body subluxation is seen. Vertebral bod y heights are maintained. Marrow signal appears normal. There is mild disc space narrowing at L4-L 5.. The conus medullaris is visible at the L1 level and appears grossly normal. L1-L2: There is no disk bulge or protrusion. There is no facet hypertrophy. There is no central c anal or neural foraminal stenosis. L2-L3: There is no disk bulge or protrusion. There is no facet hypertrophy. There is no central c anal or neural foraminal stenosis. L3-L4: There is no disk bulge or protrusion. There is minimal bilateral facet hypertrophy. There is no central canal or neural foraminal stenosis. L4-L5: There is a moderate broad-based disc protrusion extending posteriorly up to 5 mm.. There is moderate to severe bilateral facet hypertrophy. There is mild central canal stenosis, and bilateral lateral recess stenosis, with left greater than right mass effect on the traversing L5 nerve roots. There is mild to moderate right and moderate left neural foraminal stenosis. L5-S1: There is a minimal broad-based disc protrusion. There is mild to moderate bilateral facet hy pertrophy. There is no central canal stenosis. There is no significant neural foraminal stenosis. There is no abnormal paravertebral soft tissue mass. IMPRESSION: 1. 5 mm broad-based disc protrusion at L4-5. Along with moderate to severe bilateral facet hypertrop hy, this produces mild central canal stenosis and bilateral lateral recess stenosis, with left great er than right mass effect on the traversing L5 nerve roots. Moderate left and mild to moderate right neural foraminal stenosis. 2. Minimal disc protrusion and mild to moderate facet hypertrophy at L5-S1. 3. Findings appear not significantly changed from recent prior examination. RPTAT: HBST .Nicola Gutiérrez MD, MD Date Time Electronically viewed and signed by .Nicola Gutiérrez MD, on 07/04/2017 09:47 .T/
[2017-07-04] MEDS: MULTIVITAMINS THERAPEUTIC TAB PO SCH (09:58)
[2017-07-04] MEDS: HYDROXYCHLOROQUINE 200 MG TAB PO SCH ×2 (09:58→20:22)
[2017-07-04] MEDS: FOLIC ACID 1 MG TAB PO SCH (09:58)
[2017-07-04] MEDS: GABAPENTIN 100 MG CAP PO SCH ×3 (09:58→20:22)
[2017-07-04] MEDS: ESTROGENS CONJUGATED 0.625 MG TAB PO SCH (09:58)
--- NOTE | 2017-07-04 10:07 | RADRPT ---
PROCEDURE: MRI cervical spine without contrast CLINICAL INDICATION: Acute intractable neck pain status post neurosurgery, evaluate for cord compre ssion TECHNIQUE: Multiplanar MRI of the cervical spine without contrast was performed on a 3.0 T scanner including the following sequences: T1-weighted, T2-weighted, GRE. COMPARISON: Outside MRI cervical spine 06/28/2017 FINDINGS: There is preservation of the lordosis of the cervical spine. Alignment is intact. The vertebral romeo dies are maintained in height. Marrow signal intensity is unremarkable. Intervertebral discs are ma intained in height. The cervical cord is within normal limits for signal intensity and caliber at al l levels. The craniocervical junction is unremarkable. C2-3: No disk bulge or herniation is identified. There is no central canal stenosis or foraminal na rrowing. C3-4: No disk bulge or herniation is identified. There is no central canal stenosis or foraminal na rrowing. C4-5: A minimal broad posterior disk/osteophyte with mild facet arthropathy are identified without c entral canal stenosis. There is mild bilateral foraminal narrowing. C5-6: No disk bulge or herniation is identified. Mild facet arthropathy is identified. No central c anal stenosis or foraminal narrowing is identified. C6-7: No disk bulge or herniation is identified. Focal ligamentum flavum thickening is seen. Mild f acet arthropathy is identified. No central canal stenosis or foraminal narrowing is identified. C7-T1: No disk bulge or herniation is identified. There is no central canal stenosis or foraminal n arrowing. IMPRESSION: 1. No cervical cord compression; cervical cord within normal limits. 2. Mild cervical spondylosis, without central canal stenosis. 3. Mild bilateral foraminal narrowing at C4-5. RPTAT: VV .Yuriy Guadarrama MD, Date Time Electronically viewed and signed by .Yuriy Guadarrama MD, MD on 07/04/2017 10:07 .O/
--- NOTE | 2017-07-04 16:02 | PN ---
Date/Time of Note Date/Time of Note DATE: 07/04/17 TIME: 15:56 Assessment/Plan VTE Prophylaxis VTE Prophylaxis Intervention: SCD's Lines/Catheters IV Catheter Type (from Nrs): Saline Lock Urinary Cath still in place: No Assessment/Plan Chief Complaint/Hosp Course 1, Intractable back pain with lower extremity weakness secondary to degenerative disc disease at L4-L5 resulting in moderately severe canal stenosis Repeat MRI of the lumbar spine done here shows: 1. 5 mm broad-based disc protrusion at L4-5. Along with moderate to severe bilateral facet hypertrophy, this produces mild central canal stenosis and bilateral lateral recess stenosis, with left greater than right mass effect on the traversing L5 nerve roots. Moderate left and mild to moderate right neural foraminal stenosis. 2. Minimal disc protrusion and mild to moderate facet hypertrophy at L5-S1. 3. Findings appear not significantly changed from recent prior examination -Follow-up with neurosurgery recs, continue Decadron and pain control 2. Rheumatoid arthritis: pt was on prednisone at home but here currently on dexamethasone, -Continue Plaquenil and methotrexate as well as folic acid DVT and GI prophylaxis: SCDs, Protonix Problems: Subjective 24 Hr Interval Summary Musculoskeletal: back pain Exam/Review of Systems Vital Signs Vitals Vital Signs Date Time Temp Pulse Resp B/P Pulse Ox O2 Delivery O2 Flow Rate FiO2 07/04/17 12:18 98.1 65 18 120/63 97 06/30/17 22:20 Nasal Cannula 2.0 Intake and Output 07/03/17 07/03/17 07/04/17 15:00 23:00 07:00 Intake Total 1500 ml 180 ml Balance 1500 ml 180 ml Exam Constitutional: alert, oriented Respiratory: clear to auscultation Cardiovascular: regular rate and rhythm Gastrointestinal: soft, No distended Musculoskeletal: nl extremities to inspection Results Result Diagram: 07/04/17 0813 07/04/17 0813 Results 24 hrs Laboratory Tests Test 07/04/17 08:13 White Blood Count 11.3 H Red Blood Count 4.70 Hemoglobin 13.6 Hematocrit 41.4 Mean Corpuscular Volume 88.1 Mean Corpuscular Hemoglobin 28.9 L Mean Corpuscular Hemoglobin Concent 32.9 Red Cell Distribution Width 12.5 Platelet Count 303 Mean Platelet Volume 9.4 Neutrophils % 83.2 H Lymphocytes % 7.5 L Monocytes % 5.6 Eosinophils % 0.0 Basophils % 0.3 Nucleated Red Blood Cells % 0.0 Neutrophils # 9.4 H Lymphocytes # 0.9 Monocytes # 0.6 Eosinophils # 0.0 Basophils # 0.0 Nucleated Red Blood Cells # 0.0 Prothrombin Time 12.0 L Prothrombin Time Ratio 0.9 INR International Normalized Ratio 0.89 Activated Partial Thromboplast Time 22.0 L Sodium Level 140 Potassium Level 4.5 Chloride Level 107 Carbon Dioxide Level 27 Anion Gap 11 Blood Urea Nitrogen 18 Creatinine 0.71 Glucose Level 105 Calcium Level 9.6 Total Bilirubin 0.1 L Direct Bilirubin 0.00 Indirect Bilirubin 0.1 Aspartate Amino Transf (AST/SGOT) 18 Alanine Aminotransferase (ALT/SGPT) 37 Alkaline Phosphatase 69 Total Protein 7.0 Albumin 3.3 Globulin 3.70 H Albumin/Globulin Ratio 0.89 Medications Medications Current Medications Ondansetron HCl (Zofran Inj) 4 mg Q6H PRN IV NAUSEA AND/OR VOMITING Last administered on 06/30/17 21:25; Admin Dose 4 MG; Start 06/30/17 at 01:00 Acetaminophen (Tylenol Tab) 650 mg Q6H PRN PO PAIN LEVEL 1-3 OR FEVER Last administered on 06/30/17 11:40; Admin Dose 650 MG; Start 06/30/17 at 01:00 Hydromorphone HCl (Dilaudid) 0.5 mg Q4H PRN IV PAIN LEVEL 7-10 Last administered on 07/04/17 13:04; Admin Dose 0.5 MG; Start 06/30/17 at 01:00 Docusate Sodium (Colace) 100 mg Q12H PRN PO CONSTIPATION; Start 06/30/17 at 01: 00 Bisacodyl (Dulcolax) 5 mg DAILY PRN PO CONSTIPATION; Start 06/30/17 at 01:00 Dexamethasone (Decadron) 4 mg Q8 IV Last administered on 07/04/17 13:43; Admin Dose 4 MG; Start 06/30/17 at 06:00 Miscellaneous Information Patients own medicat... BID@10,16 XX ; Start 06/30/17 at 10:00 Estrogens Conjugated (Premarin) 0.625 mg DAILY PO Last administered on 09:58; Admin Dose 0.625 MG; Start 06/30/17 at 10:00 Hydroxychloroquine Sulfate (Plaquenil) 200 mg BID PO Last administered on 09:58; Admin Dose 200 MG; Start 06/30/17 at 10:00 Pantoprazole (Protonix Tab) 40 mg DAILY@06 PO Last administered on 07/04/17 05 :56; Admin Dose 40 MG; Start 07/01/17 at 06:00 Metoclopramide HCl (Reglan) 10 mg Q6H PRN IV NAUSEA Last administered on 05:23; Admin Dose 10 MG; Start 07/01/17 at 07:00 Gabapentin (Neurontin) 100 mg TID PO Last administered on 07/04/17 13:04; Admin Dose 100 MG; Start 07/01/17 at 13:46 Folic Acid (Folic Acid) 1 mg DAILY PO Last administered on 07/04/17 09:58; Admin Dose 1 MG; Start 07/01/17 at 13:46 Multivitamins Therapeutic (Theragran) 1 tab DAILY PO Last administered on 09:58; Admin Dose 1 TAB; Start 07/01/17 at 13:30 JO-ANN EDWARDS Jul 04, 2017 16:02
--- NOTE | 2017-07-04 19:11 | QN ---
Documentation Comment Repeat MRI at [facility]: "1. 5 mm broad-based disc protrusion at L4-5. Along with moderate to severe bilateral facet hypertrophy, this produces mild central canal stenosis and bilateral lateral recess stenosis, with left greater than right mass effect on the traversing L5 nerve roots. Moderate left and mild to moderate right neural foraminal stenosis." This is consistent with my reading of the MRI and is not consistent with cauda equina syndrome. The patient has low back pain in the setting of RA. She also complains of other joint pain. There is no indication for urgent neurosurgical intervention for this patient. She is welcome to follow pu with me as an outpatient once cleared for discharge by the primary team. JUSTINE FRY MD Jul 04, 2017 19:11
[2017-07-05] VITALS (11 sets, daily range): BP systolic 102–133; BP diastolic 65–77; PULSE 53–62; RESP 16–21
[2017-07-05] MEDS: PANTOPRAZOLE (EC) 40 MG TAB PO SCH (05:36)
[2017-07-05] MEDS: DEXAMETHASONE 4 MG/ML 1 ML INJ IV SCH ×3 (05:36→21:12)
[2017-07-05] MEDS: HYDROmorphONE 1 MG/ML SYG IV PRN ×4 (05:41→17:39)
[2017-07-05] MEDS: FOLIC ACID 1 MG TAB PO SCH (09:22)
[2017-07-05] MEDS: MULTIVITAMINS THERAPEUTIC TAB PO SCH (09:22)
[2017-07-05] MEDS: HYDROXYCHLOROQUINE 200 MG TAB PO SCH ×2 (09:22→21:06)
[2017-07-05] MEDS: ESTROGENS CONJUGATED 0.625 MG TAB PO SCH (09:22)
[2017-07-05] MEDS: GABAPENTIN 100 MG CAP PO SCH ×3 (09:22→21:06)
--- NOTE | 2017-07-05 09:59 | PDOCDIS ---
Discharge Instructions CONDITION Patient Condition: Good HOME CARE INSTRUCTIONS: Diet Instructions: Regular ACTIVITY: Activity Restrictions: No Restrictions FOLLOW UP/APPOINTMENTS Follow-up Plan F/U WITH YOUR PCP IN 1-2 WEEKS JO-ANN EDWARDS Jul 05, 2017 09:59
[2017-07-05] MEDS: ACETAMINOPHEN 325 MG TAB PO PRN (14:49)
--- NOTE | 2017-07-05 15:30 | PN ---
Date/Time of Note Date/Time of Note DATE: 07/05/17 TIME: 15:28 Assessment/Plan VTE Prophylaxis VTE Prophylaxis Intervention: SCD's Lines/Catheters IV Catheter Type (from Nrs): Saline Lock Urinary Cath still in place: No Assessment/Plan Chief Complaint/Hosp Course 1, Intractable back pain with lower extremity weakness secondary to degenerative disc disease at L4-L5 resulting in moderately severe canal stenosis -Repeat MRI of the lumbar spine done here shows: 1. 5 mm broad-based disc protrusion at L4-5. Along with moderate to severe bilateral facet hypertrophy, this produces mild central canal stenosis and bilateral lateral recess stenosis, with left greater than right mass effect on the traversing L5 nerve roots. Moderate left and mild to moderate right neural foraminal stenosis. 2. Minimal disc protrusion and mild to moderate facet hypertrophy at L5-S1. 3. Findings appear not significantly changed from recent prior examination -Neurosurgery stating no indication for emergent surgery -continue Decadron and pain control as patient still suffering from severe back pain, downgrade to med surge -PT eval 2. Rheumatoid arthritis: pt was on prednisone at home but here currently on dexamethasone, -Continue Plaquenil and methotrexate as well as folic acid DVT and GI prophylaxis: SCDs, Protonix Problems: Subjective 24 Hr Interval Summary Musculoskeletal: back pain Exam/Review of Systems Vital Signs Vitals Vital Signs Date Time Temp Pulse Resp B/P Pulse Ox O2 Delivery O2 Flow Rate FiO2 07/05/17 12:21 97.8 69 18 110/73 97 Intake and Output 07/04/17 07/04/17 07/05/17 15:00 23:00 07:00 Intake Total 2000 ml 400 ml Balance 2000 ml 400 ml Exam Constitutional: alert, oriented Respiratory: clear to auscultation Cardiovascular: regular rate and rhythm Gastrointestinal: soft, No distended Musculoskeletal: nl extremities to inspection Results Result Diagram: 07/04/1781207/04/17812 Medications Medications Current Medications Ondansetron HCl (Zofran Inj) 4 mg Q6H PRN IV NAUSEA AND/OR VOMITING Last administered on 06/30/17 21:25; Admin Dose 4 MG; Start 06/30/17 at 01:00 Acetaminophen (Tylenol Tab) 650 mg Q6H PRN PO PAIN LEVEL 1-3 OR FEVER Last administered on 07/05/17 14:49; Admin Dose 650 MG; Start 06/30/17 at 01:00 Hydromorphone HCl (Dilaudid) 0.5 mg Q4H PRN IV PAIN LEVEL 7-10 Last administered on 07/05/17 13:15; Admin Dose 0.5 MG; Start 06/30/17 at 01:00 Docusate Sodium (Colace) 100 mg Q12H PRN PO CONSTIPATION; Start 06/30/17 at 01: 00 Bisacodyl (Dulcolax) 5 mg DAILY PRN PO CONSTIPATION; Start 06/30/17 at 01:00 Dexamethasone (Decadron) 4 mg Q8 IV Last administered on 07/05/17 14:40; Admin Dose 4 MG; Start 06/30/17 at 06:00 Miscellaneous Information Patients own medicat... BID@16 XX ; Start 06/30/17 at 10:00 Estrogens Conjugated (Premarin) 0.625 mg DAILY PO Last administered on 09:22; Admin Dose 0.625 MG; Start 06/30/17 at 10:00 Hydroxychloroquine Sulfate (Plaquenil) 200 mg BID PO Last administered on 07/05 09:22; Admin Dose 200 MG; Start 06/30/17 at 10:00 Pantoprazole (Protonix Tab) 40 mg DAILY@06 PO Last administered on 07/05/17 05:36; Admin Dose 40 MG; Start 07/01/17 at 06:00 Metoclopramide HCl (Reglan) 10 mg Q6H PRN IV NAUSEA Last administered on 05:23; Admin Dose 10 MG; Start 07/01/17 at 07:00 Gabapentin (Neurontin) 100 mg TID PO Last administered on 07/05/17 13:15; Admin Dose 100 MG; Start 07/01/17 at 13:46 Folic Acid (Folic Acid) 1 mg DAILY PO Last administered on 07/05/17 09:22; Admin Dose 1 MG; Start 07/01/17 at 13:46 Multivitamins Therapeutic (Theragran) 1 tab DAILY PO Last administered on 07/05 09:22; Admin Dose 1 TAB; Start 07/01/17 at 13:30 JO-ANN EDWARDS Jul 05, 2017 15:30
[2017-07-05] MEDS: KETOROLAC 30 MG INJ IV PRN (21:05)
[2017-07-06 02:56] VITALS: BP 106/65; RESP 18
[2017-07-06] MEDS: DEXAMETHASONE 4 MG/ML 1 ML INJ IV SCH ×3 (05:36→21:26)
[2017-07-06] MEDS: PANTOPRAZOLE (EC) 40 MG TAB PO SCH (05:36)
[2017-07-06] MEDS: KETOROLAC 30 MG INJ IV PRN ×2 (07:53→15:54)
[2017-07-06 08:00] VITALS: BP 109/76; RESP 20
[2017-07-06] MEDS: HYDROmorphONE 1 MG/ML SYG IV PRN (09:14)
[2017-07-06] MEDS: GABAPENTIN 100 MG CAP PO SCH ×3 (09:14→21:24)
[2017-07-06] MEDS: HYDROXYCHLOROQUINE 200 MG TAB PO SCH ×2 (09:14→21:24)
[2017-07-06] MEDS: MULTIVITAMINS THERAPEUTIC TAB PO SCH (09:14)
[2017-07-06] MEDS: FOLIC ACID 1 MG TAB PO SCH (09:14)
[2017-07-06] MEDS: ESTROGENS CONJUGATED 0.625 MG TAB PO SCH (09:14)
[2017-07-06 14:00] VITALS: BP 111/71; RESP 18
[2017-07-06] MEDS ORDERED: BACLOFEN 10 MG TAB PO ONE (15:30)
--- NOTE | 2017-07-06 19:16 | PN ---
Date/Time of Note Date/Time of Note DATE: 07/06/17 TIME: 19:15 Assessment/Plan VTE Prophylaxis VTE Prophylaxis Intervention: SCD's Lines/Catheters IV Catheter Type (from Nrs): Saline Lock Urinary Cath still in place: No Assessment/Plan Chief Complaint/Hosp Course 1, Intractable back pain with lower extremity weakness secondary to degenerative disc disease at L4-L5 resulting in moderately severe canal stenosis -Repeat MRI of the lumbar spine done here shows: 1. 5 mm broad-based disc protrusion at L4-5. Along with moderate to severe bilateral facet hypertrophy, this produces mild central canal stenosis and bilateral lateral recess stenosis, with left greater than right mass effect on the traversing L5 nerve roots. Moderate left and mild to moderate right neural foraminal stenosis. 2. Minimal disc protrusion and mild to moderate facet hypertrophy at L5-S1. 3. Findings appear not significantly changed from recent prior examination -Neurosurgery stating no indication for emergent surgery -continue Decadron and pain control as patient still suffering from severe back pain, downgrade to med surge -PT eval -Lumbar muscles are tender to palpation, start baclofen 2. Rheumatoid arthritis: pt was on prednisone at home but here currently on dexamethasone, -Continue Plaquenil and methotrexate as well as folic acid DVT and GI prophylaxis: SCDs, Protonix Problems: Subjective 24 Hr Interval Summary Musculoskeletal: back pain Exam/Review of Systems Vital Signs Vitals Vital Signs Date Time Temp Pulse Resp B/P Pulse Ox O2 Delivery O2 Flow Rate FiO2 07/06/17 14:00 98.6 84 18 111/71 96 07/05/17 17:28 Room Air Intake and Output 07/05/17 07/05/17 07/06/17 15:00 23:00 07:00 Intake Total 120 ml 500 ml Balance 120 ml 500 ml Exam Constitutional: alert, oriented Respiratory: clear to auscultation Cardiovascular: regular rate and rhythm Gastrointestinal: soft, No distended Musculoskeletal: other (Tenderness to palpation in the lumbar muscles) Results Result Diagram: 07/04/1781207/04/17812 Medications Medications Current Medications Ondansetron HCl (Zofran Inj) 4 mg Q6H PRN IV NAUSEA AND/OR VOMITING Last administered on 06/30/17t 21:25; Admin Dose 4 MG; Start 06/30/17 at 01:00 Acetaminophen (Tylenol Tab) 650 mg Q6H PRN PO PAIN LEVEL 1-3 OR FEVER Last administered on 07/05/17 14:49; Admin Dose 650 MG; Start 06/30/17 at 01:00 Hydromorphone HCl (Dilaudid) 0.5 mg Q4H PRN IV PAIN LEVEL 7-10 Last administered on 07/06/17 09:14; Admin Dose 0.5 MG; Start 06/30/17 at 01:00 Docusate Sodium (Colace) 100 mg Q12H PRN PO CONSTIPATION; Start 06/30/17 at 01: 00 Bisacodyl (Dulcolax) 5 mg DAILY PRN PO CONSTIPATION; Start 06/30/17 at 01:00 Dexamethasone (Decadron) 4 mg Q8 IV Last administered on 07/06/17 13:08; Admin Dose 4 MG; Start 06/30/17 at 06:00 Miscellaneous Information Patients own medicat... BID@10,16 XX ; Start 06/30/17 at 10:00 Estrogens Conjugated (Premarin) 0.625 mg DAILY PO Last administered on 09:14; Admin Dose 0.625 MG; Start 06/30/17 at 10:00 Hydroxychloroquine Sulfate (Plaquenil) 200 mg BID PO Last administered on 07/06 09:14; Admin Dose 200 MG; Start 06/30/17 at 10:00 Pantoprazole (Protonix Tab) 40 mg DAILY@06 PO Last administered on 07/06/17 05:36; Admin Dose 40 MG; Start 07/01/17 at 06:00 Metoclopramide HCl (Reglan) 10 mg Q6H PRN IV NAUSEA Last administered on 05:23; Admin Dose 10 MG; Start 07/01/17 at 07:00 Gabapentin (Neurontin) 100 mg TID PO Last administered on 07/06/17 13:08; Admin Dose 100 MG; Start 07/01/17 at 13:46 Folic Acid (Folic Acid) 1 mg DAILY PO Last administered on 07/06/17 09:14; Admin Dose 1 MG; Start 07/01/17 at 13:46 Multivitamins Therapeutic (Theragran) 1 tab DAILY PO Last administered on 07/06 09:14; Admin Dose 1 TAB; Start 07/01/17 at 13:30 Ketorolac Tromethamine (Toradol) 30 mg Q6H PRN IV PAIN Last administered on t 15:54; Admin Dose 30 MG; Start 07/05/17 at 20:30; Stop 07/08/17 at 20: 29 JO-ANN EDWARDS Jul 06, 2017 19:16
[2017-07-06 20:12] VITALS: BP 104/67; RESP 22
[2017-07-07 02:58] VITALS: BP 105/68; RESP 20
[2017-07-07] MEDS: KETOROLAC 30 MG INJ IV PRN (03:06)
[2017-07-07] MEDS: PANTOPRAZOLE (EC) 40 MG TAB PO SCH (05:45)
[2017-07-07] MEDS: DEXAMETHASONE 4 MG/ML 1 ML INJ IV SCH ×2 (05:45→13:30)
[2017-07-07 07:30] VITALS: BP 110/69; RESP 18
[2017-07-07] MEDS: ESTROGENS CONJUGATED 0.625 MG TAB PO SCH (08:27)
[2017-07-07] MEDS: HYDROXYCHLOROQUINE 200 MG TAB PO SCH (08:27)
[2017-07-07] MEDS: MULTIVITAMINS THERAPEUTIC TAB PO SCH (08:27)
[2017-07-07] MEDS: GABAPENTIN 100 MG CAP PO SCH ×2 (08:27→13:08)
[2017-07-07] MEDS: FOLIC ACID 1 MG TAB PO SCH (08:27)
[2017-07-07] MEDS: HYDROmorphONE 1 MG/ML SYG IV PRN (08:33)
[2017-07-07] MEDS: BACLOFEN 10 MG TAB PO SCH ×2 (08:33→13:08)
[2017-07-07] MEDS: NACL 0.9% 3 ML SYG IV SCH ×2 (08:34→13:30)
[2017-07-07] MEDS ORDERED: HYDROmorphONE 0.5 MG/0.5 ML SYG IV PRN (11:30)
[2017-07-07 13:35] LABS: ADD UMIC NO; UR ASCORBIC ACID NEGATIVE (NEGATIVE); UR BILIRUBIN (Dip) NEGATIVE (NEGATIVE); UR BLOOD (Dip) NEGATIVE (NEGATIVE); UR CLARITY CLEAR (CLEAR); UR COLOR YELLOW (YELLOW); UR GLUCOSE (Dip) NEGATIVE (NEGATIVE); UR KETONES (Dip) NEGATIVE (NEGATIVE); UR LEUKOCYTE ESTERASE (Dip) NEGATIVE Leu/ul (NEGATIVE); UR NITRITE (Dip) NEGATIVE (NEGATIVE); UR SPECIFIC GRAVITY (Dip) 1.004 (1.003-1.030); UR TOTAL PROTEIN (Dip) NEGATIVE (NEGATIVE); UR UROBILINOGEN (Dip) NEGATIVE (NEGATIVE)
[2017-07-07 14:04] VITALS: BP 96/64; RESP 18
[2017-07-07] MEDS ORDERED: BACL10TA PO (15:17)
[2017-07-07] MEDS ORDERED: HYDR-906 PO (15:17)
--- NOTE | 2017-07-07 15:29 | DS ---
Date/Time of Note Date/Time of Note DATE: 07/07/17 TIME: 15:18 Discharge Summary Admission/Discharge Info Admit Date/Time Jun 29, 2017 at 10:20 Discharge Date/Time July 07, 2017 Discharge Diagnosis 1, Intractable back pain with lower extremity weakness secondary to degenerative disc disease at L4-L5 resulting in moderately severe canal stenosis -Pain now improved with steroids and muscle relaxers as well as opiates -Repeat MRI of the lumbar spine done here shows: 1. 5 mm broad-based disc protrusion at L4-5. Along with moderate to severe bilateral facet hypertrophy, this produces mild central canal stenosis and bilateral lateral recess stenosis, with left greater than right mass effect on the traversing L5 nerve roots. Moderate left and mild to moderate right neural foraminal stenosis. 2. Minimal disc protrusion and mild to moderate facet hypertrophy at L5-S1. 3. Findings appear not significantly changed from recent prior examination -Neurosurgery stating no indication for emergent surgery -Status post Decadron -PT eval appreciated -Lumbar muscles are tender to palpation, improved with baclofen 2. Rheumatoid arthritis: -Continue Plaquenil and methotrexate as well as folic acid and prednisone 3. Dysuria UA is normal Patient Condition: Good Hospital Course Patient is a 47-year-old female with a past medical history of rheumatoid arthritis diagnosed in 2008 who was transferred from [facility]. Patient was seen there due to severe hand pain, back pain and inability to walk due to pain she had not been able to properly follow up with the rheumatology secondary to insurance issues. She previously was on methotrexate 4 times weekly, [place] 10 mg daily, prednisone 4 mg daily, Plaquenil 300 mg daily. Patient was seen by neurosurgery, repeat MRI was done which showed: 1. 5 mm broad-based disc protrusion at L4-5. Along with moderate to severe bilateral facet hypertrophy, this produces mild central canal stenosis and bilateral lateral recess stenosis: with left greater than right mass effect on the traversing L5 nerve roots. Moderate left and mild to moderate right neural foraminal stenosis. 2. Minimal disc protrusion and mild to moderate facet hypertrophy at L5-S1. 3. Findings appear not significantly changed from recent prior examination MRI was reviewed by neurosurgery and it was felt that there is no indication for emergent surgery at this time. Patient was receiving Decadron IV throughout hospitalization and her lower extreme weakness and back pain did improve. It was noted that patient muscular pain lumbar region, she was given baclofen and pain did improve significantly. Patient did report dysuria, UA was checked and was normal. She did work with PT and patient was able to ambulate, recommendation was for patient to follow-up with her primary care physician as well as her polysomnography technician for further care of her rheumatoid arthritis. On the discharge patient's vitals, labs and physical exam were stable she no further acute complaints and questions are answered. Home Meds Active Scripts Hydrocodone/Acetaminophen ([place] 5-325 Tablet) 1 Each Tablet, 1 EACH PO Q4 for PAIN, #30 TAB Prov:JO-ANN EDWARDS 07/07/17 Baclofen* (Baclofen*) 10 Mg Tablet, 10 MG PO Q8 Y for MUSCLE SPASMS, #60 TAB Prov:JO-ANN EDWARDS 07/07/17 Reported Medications Prednisone* (Prednisone*) 5 Mg Tab, 5 MG PO DAILY, TAB 06/30/17 Estrogens Conjugated* (Premarin*) 0.625 Mg Tab, 0.625 MG PO DAILY, TAB 06/30/17 Methotrexate* (Methotrexate*) 2.5 Mg Tab, 2.5 MG PO MONWEDFRI, TAB 06/30/17 Hydroxychloroquine Sulfate* (Hydroxychloroquine Sulfate*) 200 Mg Tablet, 200 MG PO BID, TAB 06/30/17 Gabapentin* (Gabapentin*) 100 Mg Capsule, 100 MG PO TID, #90 CAP 06/30/17 Omeprazole* (Omeprazole*) 20 Mg Capsule.dr, 20 MG PO AC BREAKFAST, #30 CAP 06/30/17 Follow-up Plan F/U WITH YOUR PCP IN 1-2 WEEKS Primary Care Provider [facility] Time spent on discharge: > 30 minutes JO-ANN EDWARDS Jul 07, 2017 15:28
== END 2017-07-07 17:35 | disposition home or self-care (01) | DRG 552 ==
LOC: MS4 10:20 → PP2 07-05 16:58
PROVIDERS: ADMIT Internal Medicine; ATTEND Internal Medicine
DX: M51.36 Other intervertebral disc degeneration, lumbar region (principal); M06.9 Rheumatoid arthritis, unspecified; M48.061 Spinal stenosis, lumbar region without neurogenic claudication; M51.27 Other intervertebral disc displacement, lumbosacral region; R30.0 Dysuria
CPT/HCPCS: 72141; 72148; 80053; 80061; 81003; 83036; 83735; 84100; 84443; 85025; 85610; 85651; 85730; 86140; 87081; 87086; 97161; C9113; J1100; J1170; J1885; J2405; J2765

== ENCOUNTER 2017-07-14 11:29 | Outpatient (CLI) | payer OTHER ==
[~2017-07-14 11:29] MED LIST: BACL10TA PO; GABA100C14 PO; HYDR-906 PO; HYDR200T39 PO; MET25 PO; OMEP20CA16 PO; PRED5TAB PO; PREM625 PO
--- NOTE | 2017-07-14 15:58 | PN ---
Date/Time of Note Date/Time of Note DATE: 07/14/17 TIME: 15:53 Outpatient Progress Note Chief Complaint Back pain/rheumatoid arthritis/UTI/PUD HPI Back pain/patient has moderately severe back pain, patient has pain score 8 out of 10, pain reduces with pain medication, patient running out of medication, No loss of bladder or bowel control, Rheumatoid arthritis/patient has joint pain and stiffness, difficulty in walking , UTI/patient has dysuria which has improved significantly, and present no dysuria , PUD/no heartburn, no nausea or vomiting, hematemesis or melena, Review of Systems Const: No Fever, no chills, no Wt. loss, no Fatigue, normal appetite, no diaphoresis. Eyes: No pain, no discharge, no redness, no visual change, no foreign body. ENT: No pain, no bleeding, no congestion, no sore throat, no dysphagia, no discharge or rhinitis. Lymph: No adenopathy, no tender nodes, no lymphedema. Resp: No SOB, no cough, no sputum, no wheezing, no chest pain. CV: No chest pain, no palpitaions, no MEJIA, no PND, no edema. GI: Normal appetite, no pain, no nausea, no vomiting, no diarrhea, no blood, no constipation. : No frequency, no urgency, no dysuria, no hematuria, no flank pain, no discharge, no bleeding. Musc: Moderately severe back pain, no neck pain, bilateral mild knee pain, no restricted ROM. Skin: No rash, no skin lesions, no erythema, no laceration, no bruising, no pruritus. Neuro: No GONZALEZ, no dizziness, no syncope, no seizure, no focal-weakness. Endo: No polyuria, no polydypsia, no dry-skin, no temp-intolerance. Psych: No hallucinations, no depression, no anxiety, no suicidal ideation. Ext: No edema, joint pain, no ulcer, no weakness. Physical Exam General Appearance: A 47 year-old female who appears well-developed, well- nourished, in no acute distress. HEENT: Head normocephalic, atraumatic. Pupils equal, round, reactive to light and accommodate. Sclerae are no jaundice. Nasal turbinates pink without erythema or nasal discharge. Mucous membranes pink and moist without lesions. Oropharynx clear without any exudate or discharge. NECK: Supple. Trachea midline, No thyromegaly, No cervical lymphadenopathy, No mass, No carotid bruits, No JVD, Carotid pulses 2+ bilaterally. PULMONARY: Clear to auscultaion bilaterally, No retractions, Chest expansion symmetric bilaterally, no rales, no ronchi, no dulness on percussion. CARDIAC: Normal SI and S2, Regular rate and rythm, no murmur, gallop, or rub. GASTROINTESTINAL: Abdomen is soft, non-tender, Non Rigid, No distention, Positive bowel sounds x4 quadrants, Liver normal. SKIN: Warm, dry, no rash, no bruise, no echmosis. EXTREMITIES: Bilateral lower extremities normal, no edema, no phlabitus, pulse palpable, no contracture. MUSCULOSKELETAL: Spine Normal, moderately severe lumbosacral discomfort, increased with activity, reduced with rest,, Normal range of motion, No swelling , no deformity, no clubbing, or cyanosis, the patient has no edema to bilateral lower extremities, dorsalis pedis pulses palpable bilaterally. NEUROLOGIC: The patient is awake, alert, oriented, responding to yes/no questions appropriately, moving all extremities, cranial nerve intact, normal strenght, normal power, normal coordination, normal gait. Allergies Coded Allergies: No Known Allergy (Unverified , 06/29/17) PMH Back pain/herniated disc/rheumatoid arthritis/PUD Social Hx No smoking no drinking, Family Hx Noncontributory Assessment/Plan Impression Back pain/herniated disc Rheumatoid arthritis History of UTI PUD Plan Patient education done, patient increase activity slowly, no lifting or pulling or pushing, Patient running out of medication, will continue [place] 5/325 every 4 hour #60 Patient advised to lose weight slightly, Patient encouraged to follow with the primary care physician, Patient also encouraged to follow with the orthopedic, Medications Home Meds Active Scripts Hydrocodone/Acetaminophen ([place] 5-325 Tablet) 1 Each Tablet, 1 EACH PO Q4 for PAIN, #30 TAB Prov:JO-ANN EDWARDS 07/07/17 Baclofen* (Baclofen*) 10 Mg Tablet, 10 MG PO Q8 Y for MUSCLE SPASMS, #60 TAB Prov:JO-ANN EDWARDS 07/07/17 Reported Medications Prednisone* (Prednisone*) 5 Mg Tab, 5 MG PO DAILY, TAB 06/30/17 Estrogens Conjugated* (Premarin*) 0.625 Mg Tab, 0.625 MG PO DAILY, TAB 06/30/17 Methotrexate* (Methotrexate*) 2.5 Mg Tab, 2.5 MG PO MONWEDFRI, TAB 06/30/17 Hydroxychloroquine Sulfate* (Hydroxychloroquine Sulfate*) 200 Mg Tablet, 200 MG PO BID, TAB 06/30/17 Gabapentin* (Gabapentin*) 100 Mg Capsule, 100 MG PO TID, #90 CAP 06/30/17 Omeprazole* (Omeprazole*) 20 Mg Capsule., 20 MG PO AC BREAKFAST, #30 CAP 06/30/17 SANJAY CHAO MD Jul 14, 2017 15:58
== END 2017-07-14 15:51 | disposition home or self-care (01) ==
LOC: DCC 11:29
PROVIDERS: ATTEND Internal Medicine
DX: K27.9 Peptic ulcer, site unspecified, unspecified as acute or chronic, without hemorrhage or perforation (principal); M51.26 Other intervertebral disc displacement, lumbar region; M06.9 Rheumatoid arthritis, unspecified; Z87.440 Personal history of urinary (tract) infections; M25.562 Pain in left knee; M25.561 Pain in right knee
CPT/HCPCS: G0463

== ENCOUNTER 2017-07-28 11:44 | Outpatient (CLI) | payer OTHER ==
[~2017-07-28] VITALS: Ht 157.5 cm; Wt 70.9 kg
[2017-07-28 11:56] VITALS: BP 118/81; PULSE 74; RESP 16; Ht 157.5 cm; Wt 70.9 kg
--- NOTE | 2017-07-28 12:43 | PN ---
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 loss, no Fatigue, normal appetite, no diaphoresis. Eyes: No pain, no discharge, no redness, no visual change, no foreign body. ENT: No pain, no bleeding, no congestion, no sore throat, no dysphagia, no discharge or rhinitis. Lymph: No adenopathy, no tender nodes, no lymphedema. Resp: No SOB, no cough, no sputum, no wheezing, no chest pain. CV: No chest pain, no palpitaions, no MEJIA, no PND, no edema. GI: Normal appetite, no pain, no nausea, no vomiting, no diarrhea, no blood, no constipation. : No frequency, no urgency, no dysuria, no hematuria, no flank pain, no discharge, no bleeding. Musc: Lower back pain, no neck pain, mild knee pain, lumbosacral restricted ROM. Skin: No rash, no skin lesions, no erythema, no laceration, no bruising, no pruritus. Neuro: No GONZALEZ, no dizziness, no syncope, no seizure, no focal-weakness. Endo: No polyuria, no polydypsia, no dry-skin, no temp-intolerance. Psych: No hallucinations, no depression, no anxiety, no suicidal ideation. Ext: No edema, no mild joint pain, no ulcer, no weakness. Physical Exam Vital Signs Date Time Temp Pulse Resp B/P Pulse Ox O2 Delivery O2 Flow Rate FiO2 07/28/17 11:56 98.0 74 16 118/81 96 Room Air General Appearance: A 47 year-old female who appears well-developed, well- nourished, in no acute distress. HEENT: Head normocephalic, atraumatic. Pupils equal, round, reactive to light and accommodate. Sclerae are no jaundice. Nasal turbinates pink without erythema or nasal discharge. Mucous membranes pink and moist without lesions. Oropharynx clear without any exudate or discharge. NECK: Supple. Trachea midline, No thyromegaly, No cervical lymphadenopathy, No mass, No carotid bruits, No JVD, Carotid pulses 2+ bilaterally. PULMONARY: Clear to auscultaion bilaterally, No retractions, Chest expansion symmetric bilaterally, no rales, no ronchi, no dulness on percussion. CARDIAC: Normal SI and S2, Regular rate and rythm, no murmur, gallop, or rub. GASTROINTESTINAL: Abdomen is soft, non-tender, Non Rigid, No distention, Positive bowel sounds x4 quadrants, Liver normal. SKIN: Warm, dry, no rash, no bruise, no echmosis. EXTREMITIES: Bilateral lower extremities normal, no edema, no phlabitus, pulse palpable, no contracture. MUSCULOSKELETAL: Spine Normal, lumbosacral discomfort, and reduced range of motion, No swelling, no deformity, no clubbing, or cyanosis, the patient has no edema to bilateral lower extremities, dorsalis pedis pulses palpable bilaterally. NEUROLOGIC: The patient is awake, alert, oriented, responding to yes/no questions appropriately, moving all extremities, cranial nerve intact, normal strenght, normal power, normal coordination, normal gait. Allergies Coded Allergies: No Known Allergy (Unverified , 06/29/17) PMH No change Social Hx No change Family Hx No change Assessment/Plan Impression Back pain/rheumatoid arthritis/PUD Plan Patient still has lumbosacral discomfort, slightly reduced with the pain medication, patient is going to run out of medication, Patient encouraged to follow with the primary care and perl software engineer, Patient also advised to follow with orthopedic, [place] 5/325 3 times daily as needed #50 Medications Home Meds Active Scripts Baclofen* (Baclofen*) 10 Mg Tablet, 10 MG PO Q8 Y for MUSCLE SPASMS, #60 TAB Prov:MOHINI EDWARDSIvana 07/07/17 Reported Medications Prednisone* (Prednisone*) 5 Mg Tab, 5 MG PO DAILY, TAB 06/30/17 Estrogens Conjugated* (Premarin*) 0.625 Mg Tab, 0.625 MG PO DAILY, TAB 06/30/17 Methotrexate* (Methotrexate*) 2.5 Mg Tab, 2.5 MG PO MONWEDFRI, TAB 06/30/17 Hydroxychloroquine Sulfate* (Hydroxychloroquine Sulfate*) 200 Mg Tablet, 200 MG PO BID, TAB 06/30/17 Gabapentin* (Gabapentin*) 100 Mg Capsule, 100 MG PO TID, #90 CAP 06/30/17 Omeprazole* (Omeprazole*) 20 Mg Capsule.dr, 20 MG PO AC BREAKFAST, #30 CAP 06/30/17 Discontinued Scripts Hydrocodone/Acetaminophen ([place] 5-325 Tablet) 1 Each Tablet, 1 EACH PO Q4 for PAIN, #30 TAB Prov:JO-ANN EDWARDS 07/07/17 SANJAY CHAO MD Jul 28, 2017 12:42
== END 2017-07-28 17:00 | disposition home or self-care (01) ==
LOC: DCC 11:44
PROVIDERS: ATTEND Internal Medicine
DX: M54.5 Low back pain (principal); M06.9 Rheumatoid arthritis, unspecified; K27.9 Peptic ulcer, site unspecified, unspecified as acute or chronic, without hemorrhage or perforation
CPT/HCPCS: G0463

== ENCOUNTER 2017-11-15 14:46 | Emergency (ER) | END 2017-11-15 16:50 | disposition home or self-care (01) ==

== ENCOUNTER 2018-06-10 11:12 | Emergency (ER) | END 2018-06-10 13:04 | disposition home or self-care (01) ==

== ENCOUNTER 2018-12-30 17:54 | Inpatient (IN) | payer OTHER ==
[~2018-12-30] VITALS: Ht 165.1 cm; Wt 86.0 kg
[~2018-12-30 17:54] MED LIST changes: +HYDR-4011 PO; -HYDR-906 PO; +NAPR-985 PO; +OSEL75CA23 PO; +TRAM50TA2 PO; +VALA10004 PO
[2018-12-30 19:55] VITALS: PULSE 62
[2018-12-30 20:00] VITALS: PULSE 59
[2018-12-30 20:15] VITALS: Ht 165.1 cm; Wt 86.0 kg
[2018-12-30 20:20] VITALS: BP 130/67; PULSE 61; RESP 20
[2018-12-30] MEDS ORDERED: NACL 0.9% 3 ML SYG IV SCH (20:30)
[2018-12-30] MEDS ORDERED: ONDANSETRON 4 MG INJ IV PRN (20:30)
[2018-12-30] MEDS ORDERED: DEXAMETHASONE 10 MG/ML 1 ML INJ IV ONE (21:00)
[2018-12-30] MEDS ORDERED: BACLOFEN 10 MG TAB PO PRN (21:00)
[2018-12-30] MEDS ORDERED: LORAZEPAM 0.5 MG TAB PO PRN (21:00)
--- NOTE | 2018-12-30 21:03 | HP ---
Date/Time of Note Date/Time of Note DATE: 12/30/18 TIME: 21:03 Assessment/Plan VTE Prophylaxis SCD applied (from Nsg): Yes Pharmacological prophylaxis: NA/contraindicated Pharm contraindication: low risk/ambulating Assessment/Plan Hospital Course This is a 48-year female being admitted to the telemetry floor for: #1 intractable back pain: Likely secondary to existing degenerative disc disease at L4-L5. At the current time patient does not have any symptoms of sa ddle anesthesia or urinary or bladder incontinence. Her pain though is significant. I will start her on Decadron 10 mg IV loading dose along with Decadron 4 mg IV every 6 hours. Will consult neurosurgery, Dr. sarmiento who I spoke to on the phone. Will obtain an MRI of the cervical and lumbar spines in the a.m. for further evaluation. I will also add morphine IV as well as baclofe n for pain and Zofran for nausea. I will also give her Ativan as needed for agitation from steroids. #2 rheumatoid arthritis: Patient denies any current joint pains and there is no redness or erythema noted in any of the joints. I do not feel that this is a rheumatoid flare however nonetheless I will check an ESR and a CRP level as well. Continue patient's Plaquenil. At the current time will hold prednisone has been given Decadron. Patient reports that she is no longer on methotrexate. #3 DVT and GI prophylaxis: SCDs, Protonix Further treatment strategy will be implemented as per the clinical course HPI/ROS Admit Date/Time Admit Date/Time Dec 30, 2018 at 19:31 Hx of Present Illness Chief complaint: Back pain This is a 48-year-old female with a past medical history of rheumatoid arthritis as well as lumbar spinal stenosis and 5 mm broad-based disc protrusion at L4-5 who presented to [facility] with complaints of worsening of back pain. Patient has been dealing with back pain for approximately 2 years. She states that over the last few days her pain has gotten worse and it has severly limited her ambulation. She is currently on prednisone as well as P laquenil. I have not received with the transfer documentation the ED course at [facility] will be requesting these records. She denies any bowel or bladder incontinence. She denies any numbness in her perineal area. She reports that at [facility] she received Dilaudid but she had nausea and vomiting with that. Patient denies any current joint pains or any redness or swelling of her joints. Allergies: NKDA Medications: See MAR ROS Const: As per HPI Eyes : No pain discharge or redness or change in visual acuity ENT: No pain, sore throat, congestion, congestion, dysphagia or discharge Respiratory: No shortness of breath, cough, sputum, wheezing, or pleuritic pain Cardiovascular: No chest pain, palpitation, PND, or edema GI : no change in appetite, abdominal pain, nausea, vomiting, diarrhea, constipation, or change in the color his stool Genitourinary: No dysuria, hematuria, flank pain , discharge or CVA tenderness Musculoskeletal: As per HPI Skin: No rash, bruising or hives Neuro: No headache, dizziness, syncope, seizure, focal weakness Endocrine: No polyuria, polydipsia, temperature intolerance Psych: No hallucination, depression, anxiety or suicidal ideation PMH/Family/Social Past Medical History Seropositive, nonerosive rheumatoid arthritis Medications Current Medications Sodium Chloride 1,000 ml @ 75 mls/hr [id number] IV ; Start 12/30/18 at 20:30 IV Flush (NS 3 ml) 3 ml PER PROTOCOL IV ; Start 12/30/18 at 20:30 Ondansetron HCl (Zofran Inj) 4 mg Q6H PRN IV NAUSEA/VOMITING; Start 12/30/18 at 20:30 Acetaminophen (Tylenol Tab) 650 mg Q6H PRN PO .PAIN 1-3 OR TEMP; Start 12/30/18 at 20:30 Acetaminophen/ Hydrocodone Bitart ([place] (5/325)) 1 tab Q6H PRN PO .PAIN 4-6; Start 12/30/18 at 20:30 Docusate Sodium (Colace) 100 mg Q12H PRN PO .CONSTIPATION; Start 12/30/18 at 20:30 Bisacodyl (Dulcolax) 5 mg DAILY PRN PO .CONSTIPATION; Start 12/30/18 at 20:30 Dexamethasone (Decadron) 10 mg ONCE ONCE IV ; Start 12/30/18 at 21:00; Stop 12/30/18 at 21:01; Status UNV Dexamethasone (Decadron) 4 mg Q6 IV ; Start 4/8/19 at 04:00; Status UNV Lorazepam (Ativan) 0.5 mg BID PRN PO AGITATION; Start 12/30/18 at 21:00; Status UNV Baclofen (Lioresal) 10 mg Q8 PRN PO MUSCLE SPASMS; Start 12/30/18 at 21:00; Status UNV Hydroxychloroquine Sulfate (Plaquenil) 200 mg BID PO ; Start 12/30/18 at 21:00; Status UNV Coded Allergies: No Known Allergy (Unverified , 06/29/17) Past Surgical History Past Surgical Hx: no surgical history Family History Significant Family History: no pertinent family hx Social History Smoking Status: Never smoker Exam/Review of Systems Vital Signs Vitals Vital Signs Date Temp Pulse Resp B/P (MAP) Pulse Ox O2 O2 Flow FiO2 Time Delivery Rate 12/30/18 97.4 61 20 130/67 94 20:20 (88) Exam Exam General: Lying in bed she appears to be in moderate distress from pain. HEENT: Atraumatic, normocephalic. The pupils are equal, round and reactive. Extraocular motor are intact Neck: Supple with full range of motion. No rigidity or meningismus Chest: Nontender Lungs: Clear to auscultation bilaterally no crackles rales or wheezing Heart: Normal S1-S2, Regular rhythm and rate. No murmur, S3, or S4 Abdomen: Soft , nontender, nondistended , bowel sounds are present. No guarding no rebound tenderness , No masses or organomegaly. No costovertebral temporal angle mass Extremities: Positive straight leg test bilaterally left side greater than right, limited range of motion secondary to pain Musculoskeletal: Tenderness palpation along the lumbar spine Neurologic: Normal mental status, speech normal, cranial nerves II through XII are intact, motor and sensory are intact, positive straight leg test bilaterally left greater than right, rectal tone intact, BAHMAN GIBSON Dec 30, 2018 21:03
[2018-12-30] MEDS ORDERED: PANTOPRAZOLE (EC) 40 MG TAB PO ONE (21:30)
[2018-12-30] MEDS: morphine 4 MG/ML VIAL IV PRN (21:43)
[2018-12-30] MEDS: HYDROXYCHLOROQUINE 200 MG TAB PO SCH (22:37)
[2018-12-30] MEDS: SOD CHLORIDE 0.9% 1,000 ML IV SCH (23:08)
[2018-12-31] VITALS: BP 108/64; PULSE 61; PULSE 64; RESP 19
[2018-12-31] MEDS ORDERED: [UNRECOGNIZED DRUG - OTHER] (02:54)
[2018-12-31] MEDS: morphine 4 MG/ML VIAL IV PRN ×7 (03:25→22:18)
[2018-12-31 03:52] VITALS: BP 137/82; PULSE 65; RESP 18
[2018-12-31] MEDS: SOD CHLORIDE 0.9% 1,000 ML IV SCH (04:07)
[2018-12-31] MEDS: PANTOPRAZOLE (EC) 40 MG TAB PO SCH (06:29)
[2018-12-31 08:11] VITALS: BP 119/71; PULSE 67; RESP 17
[2018-12-31] MEDS: HYDROXYCHLOROQUINE 200 MG TAB PO SCH ×2 (09:51→21:01)
[2018-12-31] MEDS ORDERED: BACLOFEN 10 MG TAB PO SCH (13:00)
--- NOTE | 2018-12-31 13:27 | PN ---
Date/Time of Note Date/Time of Note DATE: 12/31/18 TIME: 13:18 Assessment/Plan VTE Prophylaxis Risk score (from Ns)>0 risk: 4 SCD applied (from Ns): Yes Pharmacological prophylaxis: NA/contraindicated Pharm contraindication: low risk/ambulating Lines/Catheters IV Catheter Type (from Nrsg): Peripheral IV Assessment/Plan Assessment/Plan 48 yo obese woman with history of rhematoid arthritis transferred from [facility] supposedly with report of acute leg weakness/numbness concerning for cauda equina but more likely acute flare of chronic lower back pain. #Lower back pain - Likely secondary to existing degenerative disc disease at L4-L5. - Due to her gradual progression of symptoms, good leg strength, lack of saddle anesthesia or bowel/bladder incontinence, I am not very concerned about cauda equina. - However will proceed with MRI L spine. - If MRI is reassuring, will pull back steroids and resume her home dose 10mg prednisone. - Morphine, baclofen for pain control - PT depending on MRI result. - Appreciate Dr. Govea for consulting. #Rheumatoid arthritis - If MRI neg, resume prednisone 10 - Cont plaquenil. - Outpatient rheumatology followup. # DVT and GI prophylaxis: SCDs, Protonix Result Diagram: 12/31/1843212/31/18 043 Subjective 24 Hr Interval Summary Free Text/Dictation When I spoke to the patient this afternoon, she says symptoms have been gradually progressive over the past week. She is more concerned about pain than weakness or numbness or the legs. Again, denies bowel or bladder incontinence. She has been able to walk, limited only by pain. She reports the decadron last night did not improve her symptoms at all. Exam/Review of Systems Exam Vitals Vital Signs Date Temp Pulse Resp B/P (MAP) Pulse Ox O2 O2 Flow FiO2 Time Delivery Rate 12/31/18 98.1 67 17 119/71 94 Room Air 08:11 (87) Intake and Output 12/30/18 12/30/18 12/31/18 1414:59 22:59 06:59 IntakeIntake Total 75 ml BalanceBalance 75 ml Exam General: Obese woman lying in bed she appears to be in moderate distress from pain. HEENT: Atraumatic, normocephalic. The pupils are equal, round and reactive. Neck: Supple with full range of motion. No rigidity or meningismus Chest: Nontender Back: Midline tenderness to palpation, especially around T6-T8 and also L2-L5. No step-offs or other gross abnormalities. Lungs: Clear to auscultation bilaterally no crackles rales or wheezing Heart: Normal S1-S2, Regular rhythm and rate. No murmur, S3, or S4 Abdomen: Soft , nontender, nondistended , Neurologic: Normal mental status, speech normal, cranial nerves II through XII are intact, sensation to light touch intact throughout. She is able to ambulate with significant pain. Results Results 24hrs Laboratory Tests Test 12/31/18 04:33 White Blood Count 7.2 # Red Blood Count 4.88 Hemoglobin 14.0 Hematocrit 44.1 Mean Corpuscular Volume 90.4 Mean Corpuscular Hemoglobin 28.7 L Mean Corpuscular Hemoglobin Concent 31.7 L Red Cell Distribution Width 13.8 Platelet Count 258 Mean Platelet Volume 10.4 Immature Granulocytes % 0.700 H Neutrophils % 92.4 H Lymphocytes % 5.4 L Monocytes % 1.1 Eosinophils % 0.0 Basophils % 0.4 Nucleated Red Blood Cells % 0.0 Immature Granulocytes # 0.050 H Neutrophils # 6.7 Lymphocytes # 0.4 L Monocytes # 0.1 L Eosinophils # 0.0 Basophils # 0.0 Nucleated Red Blood Cells # 0.0 Erythrocyte Sedimentation Rate 11 Sodium Level 141 Potassium Level 4.0 Chloride Level 105 Carbon Dioxide Level 27 Anion Gap 9 Blood Urea Nitrogen 16 Creatinine 0.65 Est Glomerular Filtrat Rate mL/min > 60 Glucose Level 143 Hemoglobin A1c 5.7 Calcium Level 9.5 Magnesium Level 2.1 Total Bilirubin 0.4 Direct Bilirubin 0.00 Indirect Bilirubin 0.4 Aspartate Amino Transf (AST/SGOT) 71 H Alanine Aminotransferase (ALT/SGPT) 90 H Alkaline Phosphatase 118 C-Reactive Protein 0.6 Total Protein 7.0 Albumin 3.9 Globulin 3.10 Albumin/Globulin Ratio 1.25 Triglycerides Level 152 H Cholesterol Level 243 H LDL Cholesterol, Calculated 162 HDL Cholesterol 51 Cholesterol/HDL Ratio 4.7 Thyroid Stimulating Hormone (TSH) 0.977 Medications Medication Current Medications Sodium Chloride 1,000 ml @ 75 mls/hr [id number] IV Last administered on 12/31/18at 04:07; Admin Dose 75 MLS/HR; Start 12/30/18 at 20:30 IV Flush (NS 3 ml) 3 ml PER PROTOCOL IV ; Start 12/30/18 at 20:30 Ondansetron HCl (Zofran Inj) 4 mg Q6H PRN IV NAUSEA/VOMITING Last administered on 12/31/18at 03:22; Admin Dose 4 MG; Start 12/30/18 at 20:30 Acetaminophen (Tylenol Tab) 650 mg Q6H PRN PO .PAIN 1-3 OR TEMP; Start 12/30/18 at 20:30 Acetaminophen/ Hydrocodone Bitart ([place] (5/325)) 1 tab Q6H PRN PO .PAIN 4-6; Start 12/30/18 at 20:30 Docusate Sodium (Colace) 100 mg Q12H PRN PO .CONSTIPATION; Start 12/30/18 at 20:30 Bisacodyl (Dulcolax) 5 mg DAILY PRN PO .CONSTIPATION; Start 12/30/18 at 20:30 Dexamethasone (Decadron) 4 mg Q6H IV ; Start 01/01/19 at 04:00 Lorazepam (Ativan) 0.5 mg BID PRN PO AGITATION; Start 12/30/18 at 21:00 Hydroxychloroquine Sulfate (Plaquenil) 200 mg BID PO Last administered on 9at 09:51; Admin Dose 200 MG; Start 12/30/18 at 21:00 Morphine Sulfate (morphine) 4 mg Q3H PRN IV SEVERE PAIN LEVEL 7-10 Last administered on 12/31/18at 13:06; Admin Dose 4 MG; Start 12/30/18 at 21:30 Pantoprazole (Protonix Tab) 40 mg DAILY@06 PO Last administered on 12/31/18at 06:29; Admin Dose 40 MG; Start 12/31/18 at 06:00 Baclofen (Lioresal) 20 mg TID PO ; Start 12/31/18 at 13:00 ANA MARÍA LEVINE MD Dec 31, 2018 13:27
[2018-12-31 14:18] VITALS: BP 122/68; PULSE 72; RESP 17
--- NOTE | 2018-12-31 15:19 | CONS ---
Assessment/Plan Assessment/Plan Assessment/Plan (Daily) Diagnoses: 1) Degenerative disc disease - Lumbar 2) Lumbar stenosis 3) Radiculopathy 4) Neurogenic claudication Ms. Lawler is a 48 year old female with severe lumbar stenosis and bilateral L4/5 neuroforaminal stenosis that has not responded to conservative measures over the past 2 years. Given her significant difficulty with pain and ambulation, I have discussed operative management with her and she would like to proceed. We will perform L4 total and L5 partial laminectomies and L4/5 foramino tomies with possible discectomy. Given the single level of her degenerative changes, we will avoid fusion for now. There are no pars defects noted. Consultation Date/Type/Reason Admit Date/Time Dec 30, 2018 at 19:31 Date of Consultation: Dec 31, 2018 Type of Consult Neurosurgery Reason for Consultation Severe back pain Date/Time of Note DATE: 12/31/18 TIME: 15:09 Hx of Present Illness Ms. Lawler is a 48 year old female with a 2 year history of steadily pr ogressive low back pain that radiates to her bilateral legs. She has pain that is worse with ambulation. She has a history of rheumatoid arthritis, which has been attributed to her pain in the past. She denies bowel or bladder incontinence. Her pain has been significantly worse since Tuesday and she can barely walk. Past Medical History Home Meds Active Scripts Naproxen* (Naprosyn*) 500 Mg Tablet, 500 MG PO BID PRN for PAIN AND/OR INFLAMMATION, #30 TAB Prov:ANGELO FAULKNER PA-C 06/10/18 Tramadol HCl (Tramadol HCl) 50 Mg Tablet, 50 MG PO Q6 PRN for PAIN, #20 TAB Prov:ANGELO FAULKNER PA-C 06/10/18 Hydrocodone/Acetaminophen ([place] 5-325 Tablet) 1 Each Tablet, 1 TAB PO Q6H PRN for PAIN, #7 TAB Prov:ABIGAIL HAMM PA-C 11/15/17 Baclofen* (Baclofen*) 10 Mg Tablet, 10 MG PO Q8 PRN for MUSCLE SPASMS, #60 TAB Prov:JO-ANN EDWARDS 07/07/17 Reported Medications [Tr] No Conflict Check 12/31/18 Prednisone* (Prednisone*) 5 Mg Tab, 5 MG PO DAILY, TAB 06/30/17 Estrogens Conjugated* (Premarin*) 0.625 Mg Tab, 0.625 MG PO DAILY, TAB 06/30/17 Hydroxychloroquine Sulfate* (Hydroxychloroquine Sulfate*) 200 Mg Tablet, 200 MG PO BID, TAB 06/30/17 Gabapentin* (Gabapentin*) 100 Mg Capsule, 100 MG PO TID, #90 CAP 06/30/17 Omeprazole* (Omeprazole*) 20 Mg Capsule.dr, 20 MG PO AC BREAKFAST, #30 CAP 06/30/17 Discontinued Reported Medications Methotrexate* (Methotrexate*) 2.5 Mg Tab, 2.5 MG PO [place], TAB 06/30/17 Discontinued Scripts valACYclovir HCl (Valtrex) 1,000 Mg Tablet, 1000 MG PO TID for 7 Days, TAB Prov:ANGELO FAULKNERC 06/10/18 Oseltamivir Phosphate* (Tamiflu*) 75 Mg Capsule, 75 MG PO BID for 5 Days, #10 CAP Prov:ABIGAIL HAM[facility] 11/15/17 Medications Current Medications IV Flush (NS 3 ml) 3 ml PER PROTOCOL IV ; Start 12/30/18 at 20:30 Ondansetron HCl (Zofran Inj) 4 mg Q6H PRN IV NAUSEA/VOMITING Last administered on 12/31/18at 03:22; Admin Dose 4 MG; Start 12/30/18 at 20:30 Acetaminophen (Tylenol Tab) 650 mg Q6H PRN PO .PAIN 1-3 OR TEMP; Start 12/30/18 at 20:30 Acetaminophen/ Hydrocodone Bitart ([place] (5/325)) 1 tab Q6H PRN PO .PAIN 4-6; Start 12/30/18 at 20:30 Docusate Sodium (Colace) 100 mg Q12H PRN PO .CONSTIPATION; Start 12/30/18 at 20:30 Bisacodyl (Dulcolax) 5 mg DAILY PRN PO .CONSTIPATION; Start 12/30/18 at 20:30 Dexamethasone (Decadron) 4 mg Q6H IV ; Start 01/01/19 at 04:00 Lorazepam (Ativan) 0.5 mg BID PRN PO AGITATION; Start 12/30/18 at 21:00 Hydroxychloroquine Sulfate (Plaquenil) 200 mg BID PO Last administered on 12/31/18at 09:51; Admin Dose 200 MG; Start 12/30/18 at 21:00 Morphine Sulfate (morphine) 4 mg Q3H PRN IV SEVERE PAIN LEVEL 7-10 Last administered on 12/31/18at 13:06; Admin Dose 4 MG; Start 12/30/18 at 21:30 Pantoprazole (Protonix Tab) 40 mg DAILY@06 PO Last administered on 12/31/18at 06:29; Admin Dose 40 MG; Start 12/31/18 at 06:00 Baclofen (Lioresal) 20 mg TID PO Last administered on 12/31/18at 14:46; Admin Dose 20 MG; Start 12/31/18 at 13:00 Allergies: Coded Allergies: No Known Allergy (Unverified , 06/29/17) Past Surgical History Past Surgical Hx: no surgical history Social History Smoking Status: Never smoker Exam/Review of Systems Exam Vitals Vital Signs Date Temp Pulse Resp B/P (MAP) Pulse Ox O2 O2 Flow FiO2 Time Delivery Rate 12/31/18 98.8 72 17 122/68 93 Room Air 14:18 (86) Intake and Output 12/30/18 12/30/18 12/31/18 1515:00 23:00 07:00 IntakeIntake Total 75 ml BalanceBalance 75 ml Exam 5/5 strength in LEs but pain limited Bilateral + straight leg raise test Sensation intact Results Result Diagram: 12/31/18 0433 12/31/18 0433 Results 24hrs Laboratory Tests Test 12/31/18 04:33 White Blood Count 7.2 # Red Blood Count 4.88 Hemoglobin 14.0 Hematocrit 44.1 Mean Corpuscular Volume 90.4 Mean Corpuscular Hemoglobin 28.7 L Mean Corpuscular Hemoglobin Concent 31.7 L Red Cell Distribution Width 13.8 Platelet Count 258 Mean Platelet Volume 10.4 Immature Granulocytes % 0.700 H Neutrophils % 92.4 H Lymphocytes % 5.4 L Monocytes % 1.1 Eosinophils % 0.0 Basophils % 0.4 Nucleated Red Blood Cells % 0.0 Immature Granulocytes # 0.050 H Neutrophils # 6.7 Lymphocytes # 0.4 L Monocytes # 0.1 L Eosinophils # 0.0 Basophils # 0.0 Nucleated Red Blood Cells # 0.0 Erythrocyte Sedimentation Rate 11 Sodium Level 141 Potassium Level 4.0 Chloride Level 105 Carbon Dioxide Level 27 Anion Gap 9 Blood Urea Nitrogen 16 Creatinine 0.65 Est Glomerular Filtrat Rate mL/min > 60 Glucose Level 143 Hemoglobin A1c 5.7 Calcium Level 9.5 Magnesium Level 2.1 Total Bilirubin 0.4 Direct Bilirubin 0.00 Indirect Bilirubin 0.4 Aspartate Amino Transf (AST/SGOT) 71 H Alanine Aminotransferase (ALT/SGPT) 90 H Alkaline Phosphatase 118 C-Reactive Protein 0.6 Total Protein 7.0 Albumin 3.9 Globulin 3.10 Albumin/Globulin Ratio 1.25 Triglycerides Level 152 H Cholesterol Level 243 H LDL Cholesterol, Calculated 162 HDL Cholesterol 51 Cholesterol/HDL Ratio 4.7 Thyroid Stimulating Hormone (TSH) 0.977 Imaging Imaging Severe L4 lumbar central stenosis with central disc bulge at L4/5 and lateral fo raminal stenosis at L4/5 bilaterally. Medications Medication Current Medications IV Flush (NS 3 ml) 3 ml PER PROTOCOL IV ; Start 12/30/18 at 20:30 Ondansetron HCl (Zofran Inj) 4 mg Q6H PRN IV NAUSEA/VOMITING Last administered on 12/31/18at 03:22; Admin Dose 4 MG; Start 12/30/18 at 20:30 Acetaminophen (Tylenol Tab) 650 mg Q6H PRN PO .PAIN 1-3 OR TEMP; Start 12/30/18 at 20:30 Acetaminophen/ Hydrocodone Bitart ([place] (5/325)) 1 tab Q6H PRN PO .PAIN 4-6; Start 12/30/18 at 20:30 Docusate Sodium (Colace) 100 mg Q12H PRN PO .CONSTIPATION; Start 12/30/18 at 20:30 Bisacodyl (Dulcolax) 5 mg DAILY PRN PO .CONSTIPATION; Start 12/30/18 at 20:30 Dexamethasone (Decadron) 4 mg Q6H IV ; Start 01/01/19 at 04:00 Lorazepam (Ativan) 0.5 mg BID PRN PO AGITATION; Start 12/30/18 at 21:00 Hydroxychloroquine Sulfate (Plaquenil) 200 mg BID PO Last administered on 12/31/18at 09:51; Admin Dose 200 MG; Start 12/30/18 at 21:00 Morphine Sulfate (morphine) 4 mg Q3H PRN IV SEVERE PAIN LEVEL 7-10 Last administered on 12/31/18at 13:06; Admin Dose 4 MG; Start 12/30/18 at 21:30 Pantoprazole (Protonix Tab) 40 mg DAILY@06 PO Last administered on 12/31/18at 06:29; Admin Dose 40 MG; Start 12/31/18 at 06:00 Baclofen (Lioresal) 20 mg TID PO Last administered on 12/31/18at 14:46; Admin Dose 20 MG; Start 12/31/18 at 13:00 BASSEM KANG MD Dec 31, 2018 15:19
[2018-12-31] MEDS ORDERED: DIPHENHYDRAMINE 50 MG INJ IV ONE (17:00)
[2018-12-31 20:00] VITALS: BP 91/53; PULSE 71; RESP 18
[2019-01-01] MEDS: HYDROCODONE/APAP (5/325) TAB PO PRN ×2 (01:32→16:06)
[2019-01-01] MEDS: morphine 4 MG/ML VIAL IV PRN ×6 (01:36→21:42)
[2019-01-01 02:00] VITALS: BP 115/70; PULSE 66; RESP 19
[2019-01-01] MEDS: DEXAMETHASONE 4 MG/ML 1 ML INJ IV SCH ×4 (04:03→21:42)
[2019-01-01] MEDS: PANTOPRAZOLE (EC) 40 MG TAB PO SCH (05:37)
[2019-01-01 08:05] VITALS: BP 127/74; PULSE 60; RESP 16
[2019-01-01] MEDS: HYDROXYCHLOROQUINE 200 MG TAB PO SCH ×2 (08:52→21:13)
[2019-01-01 14:26] VITALS: BP 118/70; PULSE 70; RESP 18
[2019-01-01 14:33] VITALS: BP 118/70; PULSE 70; RESP 18
--- NOTE | 2019-01-01 14:48 | PN ---
Date/Time of Note Date/Time of Note DATE: 01/01/19 TIME: 14:42 Assessment/Plan VTE Prophylaxis Risk score (from Nsg)>0 risk: 4 SCD applied (from Nsg): Yes Pharmacological prophylaxis: other Lines/Catheters IV Catheter Type (from Nrsg): [place] Assessment/Plan Hospital Course S: Per nursing staff, patient was still with some back pain complaints. Seen by neurosurgery team earlier today. O: VS - see below PE: Exam General: Obese woman lying in bed, some mild to moderate distress from pain. HEENT: Atraumatic, normocephalic. The pupils are equal, round and reactive. Neck: Supple with full range of motion. No rigidity or meningismus Chest: Nontender Back: Midline tenderness to palpation, especially around T6-T8 and also L2-L5. No step-offs or other gross abnormalities. Lungs: Clear to auscultation bilaterally no crackles rales or wheezing Heart: Normal S1-S2, Regular rhythm and rate. No murmur, S3, or S4 Abdomen: Soft , nontender, nondistended , Neurologic: No focal deficits Assessment/Plan: 48 yo obese woman with history of rhematoid arthritis transferred from [facility] supposedly with report of acute leg weakness/numbness concerning for cauda equina but more likely acute flare of chronic lower back pain. #Lower back pain- Likely secondary to existing degenerative disc disease at L4- L5. Evaluated by neurosurgery team who is planning on surgical operation in the next 24 hours, specifically L4 total and L5 partial laminectomies and L4/5 foraminotomies with possible discectomy. -Continue morphine, baclofen for pain control - PT eval, and continue current Decadron steroids - Appreciate Dr. Govea for consulting-again planning on surgical intervention in the next 24 hours. #Rheumatoid arthritis - Cont plaquenil. - Outpatient rheumatology followup. # DVT and GI prophylaxis: SCDs, Protonix Result Diagram: 12/31/18 04312/31/18432 Exam/Review of Systems Exam Vitals Vital Signs Date Temp Pulse Resp B/P (MAP) Pulse Ox O2 O2 Flow FiO2 Time Delivery Rate 01/01/19 98.1 70 18 118/70 97 14:33 (86) 12/31/18 Room Air 14:18 Intake and Output 12/31/18 12/31/18 01/01/19 1414:59 22:59 06:59 IntakeIntake Total 520 ml 500 ml 480 ml BalanceBalance 520 ml 500 ml 480 ml Medications Medication Current Medications IV Flush (NS 3 ml) 3 ml PER PROTOCOL IV ; Start 12/30/18 at 20:30 Ondansetron HCl (Zofran Inj) 4 mg Q6H PRN IV NAUSEA/VOMITING Last administered on 12/31/18at 03:22; Admin Dose 4 MG; Start 12/30/18 at 20:30 Acetaminophen (Tylenol Tab) 650 mg Q6H PRN PO .PAIN 1-3 OR TEMP; Start 12/30/18 at 20:30 Acetaminophen/ Hydrocodone Bitart ([place] (5/325)) 1 tab Q6H PRN PO .PAIN 4-6; Start 12/30/18 at 20:30 Docusate Sodium (Colace) 100 mg Q12H PRN PO .CONSTIPATION; Start 12/30/18 at 20:30 Bisacodyl (Dulcolax) 5 mg DAILY PRN PO .CONSTIPATION; Start 12/30/18 at 20:30 Dexamethasone (Decadron) 4 mg Q6H IV Last administered on 01/01/19at 10:15; Admin Dose 4 MG; Start 01/01/19 at 04:00 Lorazepam (Ativan) 0.5 mg BID PRN PO AGITATION; Start 12/30/18 at 21:00 Hydroxychloroquine Sulfate (Plaquenil) 200 mg BID PO Last administered on 01/01/19at 08:52; Admin Dose 200 MG; Start 12/30/18 at 21:00 Morphine Sulfate (morphine) 4 mg Q3H PRN IV SEVERE PAIN LEVEL 7-10 Last administered on 01/01/19at 12:41; Admin Dose 4 MG; Start 12/30/18 at 21:30 Pantoprazole (Protonix Tab) 40 mg DAILY@06 PO Last administered on 01/01/19at 05:37; Admin Dose 40 MG; Start 12/31/18 at 06:00 KATIE RIVERA Jan 01, 2019 14:48
[2019-01-01] MEDS ORDERED: DIPHENHYDRAMINE 25 MG CAP PO PRN (17:00)
[2019-01-01 19:48] VITALS: BP 135/83; PULSE 67; RESP 20
[2019-01-02] VITALS (15 sets, daily range): BP systolic 100–134; BP diastolic 48–77; PULSE 50–72; RESP 10–42
[2019-01-02] MEDS: DEXAMETHASONE 4 MG/ML 1 ML INJ IV SCH ×4 (04:04→21:19)
[2019-01-02] MEDS: PANTOPRAZOLE (EC) 40 MG TAB PO SCH (05:46)
[2019-01-02] MEDS: morphine 4 MG/ML VIAL IV PRN ×3 (06:32→21:19)
[2019-01-02] MEDS: HYDROXYCHLOROQUINE 200 MG TAB PO SCH ×2 (08:52→21:18)
--- NOTE | 2019-01-02 11:18 | PN ---
Date/Time of Note Date/Time of Note DATE: 01/02/19 TIME: 11:16 Assessment/Plan VTE Prophylaxis Risk score (from Ns)>0 risk: 4 SCD applied (from Ns): Yes SCD contraindicated: other Pharmacological prophylaxis: other Lines/Catheters IV Catheter Type (from Nrsg): Peripheral IV Assessment/Plan Assessment/Plan 1. Severe lumbar stenosis at L4/5 and bilateral L4/5 neuroforaminal stenosis, radiculopathy, surgery today by Dr. Govea 2. Rheumatoid arthritis, on plaquenil. outpatient rheumatology followup. 3. Obesity, weight loss 4. DVT prophylaxis: SCDs Result Diagram: 01/02/1953701/02/19537 Results 24hrs Laboratory Tests Test 01/01/19 18:00 01/02/19 05:38 Urine Test NEGATIVE White Blood Count 13.9 #H Red Blood Count 4.93 Hemoglobin 14.0 Hematocrit 43.6 Mean Corpuscular Volume 88.4 Mean Corpuscular Hemoglobin 28.4 L Mean Corpuscular Hemoglobin Concent 32.1 Red Cell Distribution Width 13.5 Platelet Count 265 Mean Platelet Volume 10.5 H Immature Granulocytes % 0.800 H Neutrophils % 88.5 H Lymphocytes % 5.7 L Monocytes % 4.9 Eosinophils % 0.0 Basophils % 0.1 Nucleated Red Blood Cells % 0.0 Immature Granulocytes # 0.110 H Neutrophils # 12.3 H Lymphocytes # 0.8 Monocytes # 0.7 Eosinophils # 0.0 Basophils # 0.0 Nucleated Red Blood Cells # 0.0 Sodium Level 142 Potassium Level 4.0 Chloride Level 107 Carbon Dioxide Level 27 Anion Gap 8 Blood Urea Nitrogen 14 Creatinine 0.59 Est Glomerular Filtrat Rate mL/min > 60 Glucose Level 135 Calcium Level 9.5 Phosphorus Level 2.8 Magnesium Level 2.2 Subjective 24 Hr Interval Summary Free Text/Dictation low back pain Exam/Review of Systems Exam Vitals Vital Signs Date Temp Pulse Resp B/P (MAP) Pulse Ox O2 O2 Flow FiO2 Time Delivery Rate 01/02/19 97.6 50 18 114/69 92 Room Air 08:33 (84) Intake and Output 01/01/19 01/01/19 01/02/19 1515:00 23:00 07:00 IntakeIntake Total 1500 ml BalanceBalance 1500 ml Constitutional: alert, oriented, well developed, obese Psych: no complaints, nl mood/affect Head: normocephalic, atraumatic Eyes: nl conjunctiva, EOMI, nl lids, PERRL ENMT: nl external ears & nose, nl lips & teeth, nl nasal mucosa & septum Neck: supple, non-tender Respiratory: clear to auscultation, normal air movement; No congested cough, No crackles/rales, No diminished breath sounds, No intercostal retraction, No labored breathing, No respirations, No tactile fremitus, No wheezing, No other Cardiovascular: regular rate and rhythm, nl pulses; No bruits, No diastolic murmur, No edema, No gallop, No irregular rhythm, No jugular venous distention (JVD), No murmurs/extra sounds, No rub, No systolic murmur, No S3, No S4, No other Gastrointestinal: soft, nl liver, spleen, non-tender Musculoskeletal: nl extremities to inspection Extremities: normal pulses; No calf tenderness, No cyanosis, No clubbing, No edema, No pitting pedal edema, No palpable cord, No tenderness, No other Neurological: [employer] 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, nl mental status, nl speech, nl strength Results Results 24hrs Laboratory Tests Test 01/01/19 18:00 01/02/19 05:38 Urine Test NEGATIVE White Blood Count 13.9 #H Red Blood Count 4.93 Hemoglobin 14.0 Hematocrit 43.6 Mean Corpuscular Volume 88.4 Mean Corpuscular Hemoglobin 28.4 L Mean Corpuscular Hemoglobin Concent 32.1 Red Cell Distribution Width 13.5 Platelet Count 265 Mean Platelet Volume 10.5 H Immature Granulocytes % 0.800 H Neutrophils % 88.5 H Lymphocytes % 5.7 L Monocytes % 4.9 Eosinophils % 0.0 Basophils % 0.1 Nucleated Red Blood Cells % 0.0 Immature Granulocytes # 0.110 H Neutrophils # 12.3 H Lymphocytes # 0.8 Monocytes # 0.7 Eosinophils # 0.0 Basophils # 0.0 Nucleated Red Blood Cells # 0.0 Sodium Level 142 Potassium Level 4.0 Chloride Level 107 Carbon Dioxide Level 27 Anion Gap 8 Blood Urea Nitrogen 14 Creatinine 0.59 Est Glomerular Filtrat Rate mL/min > 60 Glucose Level 135 Calcium Level 9.5 Phosphorus Level 2.8 Magnesium Level 2.2 Medications Medication Current Medications IV Flush (NS 3 ml) 3 ml PER PROTOCOL IV ; Start 12/30/18 at 20:30 Ondansetron HCl (Zofran Inj) 4 mg Q6H PRN IV NAUSEA/VOMITING Last administered on 12/31/18 03:22; Admin Dose 4 MG; Start 12/30/18 at 20:30 Acetaminophen (Tylenol Tab) 650 mg Q6H PRN PO .PAIN 1-3 OR TEMP; Start 12/30/18 at 20:30 Acetaminophen/ Hydrocodone Bitart ([place] (5/325)) 1 tab Q6H PRN PO .PAIN 4-6 Last administered on 01/01/19 16:06; Admin Dose 1 TAB; Start 12/30/18 at 20:30 Docusate Sodium (Colace) 100 mg Q12H PRN PO .CONSTIPATION; Start 12/30/18 at 20:30 Bisacodyl (Dulcolax) 5 mg DAILY PRN PO .CONSTIPATION; Start 12/30/18 at 20:30 Dexamethasone (Decadron) 4 mg Q6H IV Last administered on 01/02/19 04:04; Admin Dose 4 MG; Start 01/01/19 at 04:00 Lorazepam (Ativan) 0.5 mg BID PRN PO AGITATION; Start 12/30/18 at 21:00 Hydroxychloroquine Sulfate (Plaquenil) 200 mg BID PO Last administered on 01/01/19 21:13; Admin Dose 200 MG; Start 12/30/18 at 21:00 Pantoprazole (Protonix Tab) 40 mg DAILY@06 PO Last administered on 01/01/19 05:37; Admin Dose 40 MG; Start 12/31/18 at 06:00 Morphine Sulfate (morphine) 4 mg Q4H PRN IV SEVERE PAIN LEVEL 7-10 Last administered on 01/02/19 06:32; Admin Dose 4 MG; Start 01/01/19 at 17:30 Diphenhydramine HCl (Benadryl) 25 mg Q6H PRN PO ITCHING Last administered on 01/01/19 17:03; Admin Dose 25 MG; Start 01/01/19 at 17:00 MEDARDO JORDAN MD Jan 02, 2019 11:18
--- NOTE | 2019-01-02 16:31 | OPR ---
Date/Time of Note Date/Time of Note DATE: 01/02/19 TIME: 16:11 Operative Report Procedure Date: Jan 02, 2019 Preoperative Diagnosis 1) L4-5 lumbar stenosis causing neurogenic claudication 2) L4/5 bilateral neuroforaminal stenosis causing lumbar radiculopathy Postoperative Diagnosis Same Operation/Procedure Performed 1) L4 total and L5 partial laminectomy 2) Bilateral L4/5 foraminotomies 3) Use of the intraoperative microscope Surgeon Shoaib Kang M.D. Senior Reservoir Engineer None Anesthesia Type: general Estimated Blood Loss: minimal Transfusion none Specimen None Grafts/Implants none Tubes/Drains None Complications none Pt Condition Post Procedure: stable Disposition: PACU Indications Ms. Dolan is a 48 year old woman with a 2 year history of significant back pain and bilateral radicular pain that is worse with ambulation. She has attempted conservative measures including physical therapy and steroids without relief. She presented to the emergency room with a week's history of severe pain to point where she can barely ambulate. She has no bowel or bladder changes. She has had worsening of her lumbar stenosis on MRI over the past year and a half. She has no evidence of instability. Given her lack of functional mobility, I have offered her a lumbar decompression. She understands the risks and benefits and has elected to proceed. Procedure Description The patient was brought back to the operating room where general endotracheal anesthesia was induced without difficulty. She was placed prone on the OR table and the area of L4/5 was identified using a lateral x-ray. The proposed incision was infiltrated with 10cc of local anesthetic. A number 10 blade was used to incise the skin and bovie electrocautery was used to incise the fascia and carry the subperiosteal dissection bilaterally along the lamina at L4 and L5. A lateral x-ray was used confirm the surgical level. The L4 lamina and the top of the L5 lamina were removed using a high-speed drill. The L4/5 neural foramen were identified bilaterally and were unroofed using a series of Kerrison punches. A probe was used to confirm that foramen was free of compress ion.Because there was no significant compression, the L4/[address].. The wound was then washed with copious antibiotic irrigation and closed in layered fashion using 2-0 vicryl sutres for the muscles and fascia, 3-0 vicryl for the dermis and a running 3-0 monocryl stitch. SHOAIB KANG MD Jan 02, 2019 16:31
[2019-01-02] MEDS ORDERED: MIDAZOLAM 1 MG/ML 2 ML INJ ONE ×2 (16:36→19:14)
[2019-01-02] MEDS ORDERED: BUPIVACAINE 0.5%/EPI (SDV) 30 ML INJ ONE (16:42)
[2019-01-02] MEDS ORDERED: POLYMYXIN/BACITRACIN 1L IRRIG ONE (16:42)
[2019-01-02] MEDS ORDERED: GELATIN SIZE 100 SPONGE ONE (16:42)
[2019-01-02] MEDS ORDERED: THROMBIN (BOVINE) 5,000 UNIT VIAL TP ONE (16:42)
[2019-01-02] MEDS ORDERED: HEMOSTATIC MATRIX SYG ZFS ONE (17:39)
[2019-01-02] MEDS ORDERED: ROCURONIUM 50 MG INJ ONE (18:56)
[2019-01-02] MEDS ORDERED: NEOSTIGMINE 3 MG/3 ML SYRINGE ONE (18:56)
[2019-01-02] MEDS ORDERED: GLYCOPYRROLATE 0.4 MG INJ ONE (18:56)
[2019-01-02] MEDS ORDERED: LIDOCAINE 2% (SDV) 5 ML INJ ONE (18:56)
[2019-01-02] MEDS ORDERED: PROPOFOL 20 ML ONE (18:56)
[2019-01-02] MEDS ORDERED: CEFAZOLIN 1 GM INJ ONE (18:57)
[2019-01-02] MEDS ORDERED: ONDANSETRON 4 MG INJ ONE (18:57)
--- NOTE | 2019-01-02 19:16 | PAC ---
Date/Time of Note Date/Time of Note DATE: 01/02/19 TIME: 19:15 Post-Anesthesia Notes Post-Anesthesia Note Last documented vital signs Vital Signs Date Temp Pulse Resp B/P (MAP) Pulse Ox O2 O2 Flow FiO2 Time Delivery Rate 01/02/19 98.0 19:11 01/02/19 58 18 122/75 92 Room Air 15:03 (91) Activity: WNL Respiratory function: WNL Cardiovascular function: WNL Mental status: Baseline Pain reasonably controlled: Yes Hydration appropriate: Yes Nausea/Vomiting absent: Yes Comments BP:122/56, P:88, Spo2:100%, T:98,8 HUGO ROWE MD Jan 02, 2019 19:16
--- NOTE | 2019-01-02 19:19 | PREAC ---
Date/Time of Note Date/Time of Note DATE: 01/02/19 TIME: 19:17 Anesthesia Eval and Record Evaluation Time Pre-Procedure Interview DATE: 01/02/19 TIME: 19:17 Age 48 Sex female NPO: 8 hrs Preoperative diagnosis L4-L5 Lumbar stenosis Planned procedure L4-L5 Laminectomy Past Medical History Past Medical History: None Surgery & Anesthesia Issues No known issue Meds Anticoagulation: No Beta Evgeny within 24 hr: No Reason Beta Evgeny not given: Pt. not on B-Evgeny Active Scripts Naproxen* (Naprosyn*) 500 Mg Tablet, 500 MG PO BID PRN for PAIN AND/OR INFLAMMA TION, #30 TAB Prov:ANGELO FAULKNER PA-C 06/10/18 Tramadol HCl (Tramadol HCl) 50 Mg Tablet, 50 MG PO Q6 PRN for PAIN, #20 TAB Prov:ANGELO FAULKNER PA-C 06/10/18 Hydrocodone/Acetaminophen ([place] 5-325 Tablet) 1 Each Tablet, 1 TAB PO Q6H PRN for PAIN, #7 TAB Prov:ABIGAIL [facility] 11/15/17 Baclofen* (Baclofen*) 10 Mg Tablet, 10 MG PO Q8 PRN for MUSCLE SPASMS, #60 TAB Prov:JO-ANN EDWARDS 07/07/17 Reported Medications [Tr] No Conflict Check 12/31/18 Prednisone* (Prednisone*) 5 Mg Tab, 5 MG PO DAILY, TAB 06/30/17 Estrogens Conjugated* (Premarin*) 0.625 Mg Tab, 0.625 MG PO DAILY, TAB 06/30/17 Hydroxychloroquine Sulfate* (Hydroxychloroquine Sulfate*) 200 Mg Tablet, 200 MG PO BID, TAB 06/30/17 Gabapentin* (Gabapentin*) 100 Mg Capsule, 100 MG PO TID, #90 CAP 06/30/17 Omeprazole* (Omeprazole*) 20 Mg Capsule.dr, 20 MG PO AC BREAKFAST, #30 CAP 06/30/17 Discontinued Reported Medications Methotrexate* (Methotrexate*) 2.5 Mg Tab, 2.5 MG PO MONWEDFRI, TAB 06/30/17 Discontinued Scripts valACYclovir HCl (Valtrex) 1,000 Mg Tablet, 1000 MG PO TID for 7 Days, TAB Prov:ANGELO FAULKNER PA-C 06/10/18 Oseltamivir Phosphate* (Tamiflu*) 75 Mg Capsule, 75 MG PO BID for 5 Days, #10 CAP Prov:ABIGAIL [facility] PA-C 11/15/17 Current Medications IV Flush (NS 3 ml) 3 ml PER PROTOCOL IV ; Start 12/30/18 at 20:30 Ondansetron HCl (Zofran Inj) 4 mg Q6H PRN IV NAUSEA/VOMITING Last administered on 12/31/18 03:22; Admin Dose 4 MG; Start 12/30/18 at 20:30 Acetaminophen (Tylenol Tab) 650 mg Q6H PRN PO .PAIN 1-3 OR TEMP; Start 12/30/18 at 20:30 Acetaminophen/ Hydrocodone Bitart ([place] (5/325)) 1 tab Q6H PRN PO .PAIN 4-6 Last administered on 01/01/19 16:06; Admin Dose 1 TAB; Start 12/30/18 at 20:30 Docusate Sodium (Colace) 100 mg Q12H PRN PO .CONSTIPATION; Start 12/30/18 at 20:30 Bisacodyl (Dulcolax) 5 mg DAILY PRN PO .CONSTIPATION; Start 12/30/18 at 20:30 Dexamethasone (Decadron) 4 mg Q6H IV Last administered on 01/02/19 11:22; Admin Dose 4 MG; Start 01/01/19 at 04:00 Lorazepam (Ativan) 0.5 mg BID PRN PO AGITATION; Start 12/30/18 at 21:00 Hydroxychloroquine Sulfate (Plaquenil) 200 mg BID PO Last administered on 01/01/19 21:13; Admin Dose 200 MG; Start 12/30/18 at 21:00 Pantoprazole (Protonix Tab) 40 mg DAILY@06 PO Last administered on 01/01/19 05:37; Admin Dose 40 MG; Start 12/31/18 at 06:00 Morphine Sulfate (morphine) 4 mg Q4H PRN IV SEVERE PAIN LEVEL 7-10 Last administered on 01/02/19 11:25; Admin Dose 4 MG; Start 01/01/19 at 17:30 Diphenhydramine HCl (Benadryl) 25 mg Q6H PRN PO ITCHING Last administered on 01/01/19 17:03; Admin Dose 25 MG; Start 01/01/19 at 17:00 Cefazolin Sodium 50 ml @ 100 mls/hr Q8 IVPB ; Start 01/02/19 at 22:00; Stop 01/03/19 at 14:29 Meds reviewed: Yes Allergies Coded Allergies: No Known Allergy (Unverified , 06/29/17) Allergies Reviewed: Yes Labs/Studies Labs Reviewed: Reviewed by anesthesiologist Result Diagram: 01/02/19 0538 01/02/19 0538 Laboratory Tests 01/02/19 05:38 test: Negative Studies: ECG Pre-procedure Exam Last vitals Vital Signs Date Temp Pulse Resp B/P (MAP) Pulse Ox O2 O2 Flow FiO2 Time Delivery Rate 01/02/19 98.0 19:11 01/02/19 58 18 122/75 92 Room Air 15:03 (91) Airway: Adequate mouth opening, Adequate thyromental dist Mallampati: Mallampati II Teeth: Normal Lung: Normal Heart: Normal ASA Physical Status ASA physical status: 2 Emergency: None Planned Anesthetic General/MAC: ETT Planned Pain Management Parenteral pain med Pre-operative Attestations Prior to commencing anesthesia and surgery, the patient was re-evaluated, there was verification of: *The patient's identity *The results of appropriate recent lab work and preoperative vital signs *The above evaluation not changing prior to induction *Anesthetic plan, risk benefits, alternative and complications discussed with patient/family; questions answered; patient/family understands, accepts and wishes to proceed. HUGO ROWE MD Jan 02, 2019 19:19
[2019-01-02] MEDS: HYDROmorphONE 1 MG/5 ML IV SYRINGE IV PRN ×3 (19:29→19:59)
[2019-01-02] MEDS ORDERED: FENTAnyl 50 MCG/ML VIAL IV PRN (19:30)
[2019-01-02] MEDS ORDERED: ONDANSETRON 4 MG INJ IV PRN (19:30)
[2019-01-02] MEDS ORDERED: DIPHENHYDRAMINE 50 MG INJ IV PRN (19:30)
[2019-01-02] MEDS ORDERED: METOCLOPRAMIDE 10 MG INJ IV PRN (19:30)
[2019-01-02] MEDS ORDERED: MEPERIDINE 25 MG INJ IV PRN (19:30)
[2019-01-02] MEDS ORDERED: HYDROmorphONE 1 MG/5 ML IV SYRINGE IV PRN (19:30)
[2019-01-02] MEDS ORDERED: LABETALOL HCL 20MG INJ IV PRN (19:30)
[2019-01-02] MEDS ORDERED: MIDAZOLAM 1 MG/ML 2 ML INJ IV PRN (19:30)
[2019-01-02] MEDS: CEFAZOLIN 1 GM/50 ML (PMX) 50 ML IVPB SCH (21:17)
[2019-01-03] MEDS: HYDROCODONE/APAP (5/325) TAB PO PRN ×2 (00:11→20:01)
[2019-01-03 01:59] VITALS: BP 108/60; PULSE 62; RESP 16
[2019-01-03] MEDS: morphine 4 MG/ML VIAL IV PRN ×5 (02:02→22:38)
[2019-01-03] MEDS: DEXAMETHASONE 4 MG/ML 1 ML INJ IV SCH ×4 (04:48→22:38)
[2019-01-03] MEDS: ACETAMINOPHEN 325 MG TAB PO PRN (05:06)
[2019-01-03] MEDS: CEFAZOLIN 1 GM/50 ML (PMX) 50 ML IVPB SCH ×2 (06:37→13:39)
[2019-01-03] MEDS: PANTOPRAZOLE (EC) 40 MG TAB PO SCH (06:37)
[2019-01-03 07:58] VITALS: BP 112/65; PULSE 55; RESP 16
[2019-01-03] MEDS: DOCUSATE SODIUM 100 MG CAP PO PRN (09:23)
[2019-01-03] MEDS: HYDROXYCHLOROQUINE 200 MG TAB PO SCH ×2 (09:23→21:14)
--- NOTE | 2019-01-03 13:30 | PN ---
Date/Time of Note Date/Time of Note DATE: 01/03/19 TIME: 13:26 Assessment/Plan VTE Prophylaxis Risk score (from [facility])>0 risk: 4 SCD applied (from [facility]): Yes Pharmacological prophylaxis: other Pharm contraindication: other Lines/Catheters [facility] ([facility] Peripheral IV Assessment/Plan Assessment/Plan 1. Severe lumbar stenosis at L4/5 and bilateral L4/5 neuroforaminal stenosis, radiculopathy, s/p L4 total and L5 partial laminectomy, bilateral L4/5 foraminotomies on 01/02/2019, on decadron, add neurontin 2. Rheumatoid arthritis, on plaquenil. outpatient rheumatology followup. 3. Obesity, weight loss 4. Dyslipidemia, will start statin and diet 5. Leukocytosis, steroid related 6. DVT prophylaxis: SCDs Result Diagram: 01/03/1971801/03/19718 Results 24hrs Laboratory Tests Test 01/03/19 07:19 White Blood Count 14.4 H Red Blood Count 4.48 Hemoglobin 13.0 Hematocrit 40.4 Mean Corpuscular Volume 90.2 Mean Corpuscular Hemoglobin 29.0 Mean Corpuscular Hemoglobin Concent 32.2 Red Cell Distribution Width 13.3 Platelet Count 240 Mean Platelet Volume 10.3 Immature Granulocytes % 0.900 H Neutrophils % 87.3 H Lymphocytes % 4.8 L Monocytes % 6.8 Eosinophils % 0.0 Basophils % 0.2 Nucleated Red Blood Cells % 0.0 Immature Granulocytes # 0.130 H Neutrophils # 12.5 H Lymphocytes # 0.7 L Monocytes # 1.0 H Eosinophils # 0.0 Basophils # 0.0 Nucleated Red Blood Cells # 0.0 Sodium Level 141 Potassium Level 4.1 Chloride Level 109 Carbon Dioxide Level 27 Anion Gap 5 Blood Urea Nitrogen 17 Creatinine 0.75 Est Glomerular Filtrat Rate mL/min > 60 Glucose Level 114 Calcium Level 8.9 Subjective 24 Hr Interval Summary Free Text/Dictation low back pain radiates down to back of both legs, left more than right Exam/Review of Systems Exam Vitals Vital Signs Date Temp Pulse Resp B/P (MAP) Pulse Ox O2 O2 Flow FiO2 Time Delivery Rate 01/03/19 Nasal 2.0 10:00 Cannula 01/03/19 98.1 55 16 112/65 94 07:58 (81) Intake and Output 01/02/19 01/02/19 01/03/19 1515:00 23:00 07:00 IntakeIntake Total 1100 ml 130 ml OutputOutput Total 1100 ml 15 ml BalanceBalance -1100 ml 1085 ml 130 ml Constitutional: alert, oriented, well developed, obese Psych: no complaints, nl mood/affect Head: normocephalic, atraumatic Eyes: nl conjunctiva, EOMI, nl lids, PERRL ENMT: nl external ears & nose, nl lips & teeth, nl nasal mucosa & septum, mucosa pink and moist Neck: supple, non-tender Respiratory: clear to auscultation, normal air movement; No congested cough, No crackles/rales, No diminished breath sounds, No i ntercostal retraction, No labored breathing, No respirations, No tactile fremitus, No wheezing, No other Cardiovascular: regular rate and rhythm, nl pulses; No bruits, No diastolic murmur, No edema, No gallop, No irregular rhythm, No jugular venous distention (JVD), No murmurs/extra sounds, No rub, No systolic murmur, No S3, No S4, No other Gastrointestinal: soft, nl liver, spleen, non-tender; No ascites, No bowel sounds, No distended, No firm, No hepatomegaly, No mass, No rebound or guarding, No splenomegaly, No surgical scars, No tender, No other Musculoskeletal: nl extremities to inspection Extremities: normal pulses; No calf tenderness, No cyanosis, No clubbing, No edema, No pitting pedal isaac a, No palpable cord, No tenderness, No other Neurological: INSPECTOR AND MENDER 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, nl mental status, nl speech Results Results 24hrs Laboratory Tests Test 01/03/19 07:19 White Blood Count 14.4 H Red Blood Count 4.48 Hemoglobin 13.0 Hematocrit 40.4 Mean Corpuscular Volume 90.2 Mean Corpuscular Hemoglobin 29.0 Mean Corpuscular Hemoglobin Concent 32.2 Red Cell Distribution Width 13.3 Platelet Count 240 Mean Platelet Volume 10.3 Immature Granulocytes % 0.900 H Neutrophils % 87.3 H Lymphocytes % 4.8 L Monocytes % 6.8 Eosinophils % 0.0 Basophils % 0.2 Nucleated Red Blood Cells % 0.0 Immature Granulocytes # 0.130 H Neutrophils # 12.5 H Lymphocytes # 0.7 L Monocytes # 1.0 H Eosinophils # 0.0 Basophils # 0.0 Nucleated Red Blood Cells # 0.0 Sodium Level 141 Potassium Level 4.1 Chloride Level 109 Carbon Dioxide Level 27 Anion Gap 5 Blood Urea Nitrogen 17 Creatinine 0.75 Est Glomerular Filtrat Rate mL/min > 60 Glucose Level 114 Calcium Level 8.9 Medications Medication Current Medications IV Flush (NS 3 ml) 3 ml PER PROTOCOL IV ; Start 12/30/18 at 20:30 Ondansetron HCl (Zofran Inj) 4 mg Q6H PRN IV NAUSEA/VOMITING Last administered on 12/31/18 03:22; Admin Dose 4 MG; Start 12/30/18 at 20:30 Acetaminophen (Tylenol Tab) 650 mg Q6H PRN PO .PAIN 1-3 OR TEMP Last administered on 01/03/19 05:06; Admin Dose 650 MG; Start 12/30/18 at 20:30 Acetaminophen/ Hydrocodone Bitart ([place] (5/325)) 1 tab Q6H PRN PO .PAIN 4-6 Last administered on 01/03/19 00:11; Admin Dose 1 TAB; Start 12/30/18 at 20:30 Docusate Sodium (Colace) 100 mg Q12H PRN PO .CONSTIPATION Last administered on 01/03/19 09:23; Admin Dose 100 MG; Start 12/30/18 at 20:30 Bisacodyl (Dulcolax) 5 mg DAILY PRN PO .CONSTIPATION; Start 12/30/18 at 20:30 Dexamethasone (Decadron) 4 mg Q6H IV Last administered on 01/03/19 09:23; Admin Dose 4 MG; Start 01/01/19 at 04:00 Lorazepam (Ativan) 0.5 mg BID PRN PO AGITATION Last administered on 01/03/19 00:11; Admin Dose 0.5 MG; Start 12/30/18 at 21:00 Hydroxychloroquine Sulfate (Plaquenil) 200 mg BID PO Last administered on 01/03/19 09:23; Admin Dose 200 MG; Start 12/30/18 at 21:00 Pantoprazole (Protonix Tab) 40 mg DAILY@06 PO Last administered on 01/03/19 06:37; Admin Dose 40 MG; Start 12/31/18 at 06:00 Morphine Sulfate (morphine) 4 mg Q4H PRN IV SEVERE PAIN LEVEL 7-10 Last administered on 01/03/19 10:53; Admin Dose 4 MG; Start 01/01/19 at 17:30 Diphenhydramine HCl (Benadryl) 25 mg Q6H PRN PO ITCHING Last administered on 01/01/19at 17:03; Admin Dose 25 MG; Start 01/01/19 at 17:00 Cefazolin Sodium 50 ml @ 100 mls/hr Q8 IVPB Last administered on 01/03/19at 06:37; Admin Dose 100 MLS/HR; Start 01/02/19 at 22:00; Stop 01/03/19 at 14:29 MEDARDO JORDAN MD Jan 03, 2019 13:30
[2019-01-03 14:14] VITALS: BP 109/59; PULSE 69; RESP 18
--- NOTE | 2019-01-03 16:17 | CONS ---
Assessment/Plan Assessment/Plan Assessment/Plan (Daily) Doing well postoperatively, but high pain med requirement given prior chronic use. - Ambulate/OOB - Pain management - Home tomorrow Consultation Date/Type/Reason Admit Date/Time Dec 30, 2018 at 19:31 Initial Consult Date 12/31/18 Type of Consult Neurosurgery Date/Time of Note DATE: 01/03/19 TIME: 16:15 24 HR Interval Summary Free Text/Dictation POD1 L4 total, L5 partial lami, bilateral L4/5 foraminotomy Preop back pain and leg pain resolved, however experiencing significant post- surgical back pain. Exam/Review of Systems Exam Vitals Vital Signs Date Temp Pulse Resp B/P (MAP) Pulse Ox O2 O2 Flow FiO2 Time Delivery Rate 01/03/19 98.2 69 18 109/59 96 14:14 (76) 01/03/19 Nasal 2.0 10:00 Cannula Intake and Output 01/02/19 01/02/19 01/03/19 1515:00 23:00 07:00 IntakeIntake Total 1100 ml 130 ml OutputOutput Total 1100 ml 15 ml BalanceBalance -1100 ml 1085 ml 130 ml Exam 5/5, LE exam pain limited Results Result Diagram: 01/03/1919 01/03/1919 Results 24hrs Laboratory Tests Test 01/03/19 07:19 White Blood Count 14.4 H Red Blood Count 4.48 Hemoglobin 13.0 Hematocrit 40.4 Mean Corpuscular Volume 90.2 Mean Corpuscular Hemoglobin 29.0 Mean Corpuscular Hemoglobin Concent 32.2 Red Cell Distribution Width 13.3 Platelet Count 240 Mean Platelet Volume 10.3 Immature Granulocytes % 0.900 H Neutrophils % 87.3 H Lymphocytes % 4.8 L Monocytes % 6.8 Eosinophils % 0.0 Basophils % 0.2 Nucleated Red Blood Cells % 0.0 Immature Granulocytes # 0.130 H Neutrophils # 12.5 H Lymphocytes # 0.7 L Monocytes # 1.0 H Eosinophils # 0.0 Basophils # 0.0 Nucleated Red Blood Cells # 0.0 Sodium Level 141 Potassium Level 4.1 Chloride Level 109 Carbon Dioxide Level 27 Anion Gap 5 Blood Urea Nitrogen 17 Creatinine 0.75 Est Glomerular Filtrat Rate mL/min > 60 Glucose Level 114 Calcium Level 8.9 Medications Medication Current Medications IV Flush (NS 3 ml) 3 ml PER PROTOCOL IV ; Start 12/30/18 at 20:30 Ondansetron HCl (Zofran Inj) 4 mg Q6H PRN IV NAUSEA/VOMITING Last administered on 12/31/18 03:22; Admin Dose 4 MG; Start 12/30/18 at 20:30 Acetaminophen (Tylenol Tab) 650 mg Q6H PRN PO .PAIN 1-3 OR TEMP Last administered on 01/03/19 05:06; Admin Dose 650 MG; Start 12/30/18 at 20:30 Acetaminophen/ Hydrocodone Bitart ([place] (5/325)) 1 tab Q6H PRN PO .PAIN 4-6 Last administered on 01/03/19 00:11; Admin Dose 1 TAB; Start 12/30/18 at 20:30 Docusate Sodium (Colace) 100 mg Q12H PRN PO .CONSTIPATION Last administered on 01/03/19 09:23; Admin Dose 100 MG; Start 12/30/18 at 20:30 Bisacodyl (Dulcolax) 5 mg DAILY PRN PO .CONSTIPATION; Start 12/30/18 at 20:30 Dexamethasone (Decadron) 4 mg Q6H IV Last administered on 01/03/19 09:23; Admin Dose 4 MG; Start 01/01/19 at 04:00 Lorazepam (Ativan) 0.5 mg BID PRN PO AGITATION Last administered on 01/03/19 00:11; Admin Dose 0.5 MG; Start 12/30/18 at 21:00 Hydroxychloroquine Sulfate (Plaquenil) 200 mg BID PO Last administered on 01/03/19 09:23; Admin Dose 200 MG; Start 12/30/18 at 21:00 Pantoprazole (Protonix Tab) 40 mg DAILY@06 PO Last administered on 01/03/19 06:37; Admin Dose 40 MG; Start 12/31/18 at 06:00 Morphine Sulfate (morphine) 4 mg Q4H PRN IV SEVERE PAIN LEVEL 7-10 Last administered on 01/03/19 10:53; Admin Dose 4 MG; Start 01/01/19 at 17:30 Diphenhydramine HCl (Benadryl) 25 mg Q6H PRN PO ITCHING Last administered on 01/01/19 17:03; Admin Dose 25 MG; Start 01/01/19 at 17:00 Gabapentin (Neurontin) 100 mg TID PO ; Start 01/03/19 at 21:00 BASSEM KANG MD Jan 03, 2019 16:17
[2019-01-03] MEDS ORDERED: GABAPENTIN 100 MG CAP ONE (19:57)
[2019-01-03] MEDS: GABAPENTIN 100 MG CAP PO SCH (20:01)
[2019-01-03 20:03] VITALS: BP 103/62; PULSE 70; RESP 16
[2019-01-04] MEDS: morphine 4 MG/ML VIAL IV PRN ×5 (02:53→20:39)
[2019-01-04 03:09] VITALS: BP 101/58; PULSE 61; RESP 16
[2019-01-04] MEDS: DEXAMETHASONE 4 MG/ML 1 ML INJ IV SCH ×4 (04:04→22:06)
[2019-01-04] MEDS: HYDROCODONE/APAP (5/325) TAB PO PRN ×2 (04:04→22:04)
[2019-01-04] MEDS: PANTOPRAZOLE (EC) 40 MG TAB PO SCH (06:06)
[2019-01-04 08:00] VITALS: BP 117/73; PULSE 88; RESP 18
[2019-01-04] MEDS: ACETAMINOPHEN 325 MG TAB PO PRN (09:14)
[2019-01-04] MEDS: HYDROXYCHLOROQUINE 200 MG TAB PO SCH ×2 (09:14→20:43)
[2019-01-04] MEDS: GABAPENTIN 100 MG CAP PO SCH ×3 (09:15→20:43)
[2019-01-04] MEDS: DOCUSATE SODIUM 100 MG CAP PO PRN (11:38)
--- NOTE | 2019-01-04 12:02 | PN ---
Date/Time of Note Date/Time of Note DATE: 01/04/19 TIME: 12:00 Assessment/Plan VTE Prophylaxis Risk score (from [facility])>0 risk: 3 [place] [facility] Yes Pharmacological prophylaxis: other Pharm contraindication: other Lines/Catheters IV [facility] Type (from [facility] [place] Assessment/Plan Assessment/Plan 1. Severe lumbar stenosis at L4/5 and bilateral L4/5 neuroforaminal stenosis, radiculopathy, s/p L4 total and L5 partial laminectomy, bilateral L4/5 foraminotomies on 01/02/2019, decrease decadron, increase neurontin 2. Rheumatoid arthritis, on plaquenil. outpatient rheumatology followup. 3. Obesity, weight loss 4. Dyslipidemia, will start statin and diet 5. Leukocytosis, steroid related 6. DVT prophylaxis: SCDs Result Diagram: 01/04/1951101/04/19511 Results 24hrs Laboratory Tests Test 01/04/19 05:12 White Blood Count 14.4 H Red Blood Count 4.74 Hemoglobin 13.4 Hematocrit 43.0 Mean Corpuscular Volume 90.7 Mean Corpuscular Hemoglobin 28.3 L Mean Corpuscular Hemoglobin Concent 31.2 L Red Cell Distribution Width 13.5 Platelet Count 239 Mean Platelet Volume 10.4 Immature Granulocytes % 1.500 H Neutrophils % 82.8 H Lymphocytes % 5.6 L Monocytes % 10.0 Eosinophils % 0.0 Basophils % 0.1 Nucleated Red Blood Cells % 0.0 Immature Granulocytes # 0.210 H Neutrophils # 11.9 H Lymphocytes # 0.8 Monocytes # 1.4 H Eosinophils # 0.0 Basophils # 0.0 Nucleated Red Blood Cells # 0.0 Sodium Level 140 Potassium Level 4.1 Chloride Level 109 Carbon Dioxide Level 26 Anion Gap 5 Blood Urea Nitrogen 16 Creatinine 0.62 Est Glomerular Filtrat Rate mL/min > 60 Glucose Level 136 Calcium Level 8.9 Subjective 24 Hr Interval Summary Free Text/Dictation still with lower back pain radiates down to legs, less today Exam/Review of Systems Exam Vitals Vital Signs Date Temp Pulse Resp B/P (MAP) Pulse Ox O2 O2 Flow FiO2 Time Delivery Rate 01/04/19 98.6 88 18 117/73 98 08:00 (88) 01/03/19 Nasal 2.0 10:00 Cannula Intake and Output 4/07/1401/03/19 01/04/19 1414:59 22:59 06:59 IntakeIntake Total 340 ml 1200 ml BalanceBalance 340 ml 1200 ml Constitutional: alert, oriented, well developed, obese Head: normocephalic, atraumatic Eyes: nl conjunctiva, EOMI, nl lids ENMT: nl external ears & nose, nl lips & teeth, nl nasal mucosa & septum Neck: supple, non-tender Respiratory: clear to auscultation, normal air movement; No congested cough, No crackles/rales, No diminished breath sounds, No intercostal retraction, No labored breathing, No respirations, No tactile fremitus, No wheezing, No other Cardiovascular: regular rate and rhythm, nl pulses; No bruits, No diastolic murmur, No edema, No gallop, No irregular rhythm, No jugular venous distention (JVD), No murmurs/extra sounds, No rub, No systolic murmur, No S3, No S4, No other Gastrointestinal: soft, nl liver, spleen, non-tender Musculoskeletal: nl extremities to inspection Extremities: normal pulses; No calf tenderness, No cyanosis, No clubbing, No edema, No pitting pedal edema, No palpable cord, No tenderness, No other Neurological: EXTRUDER OPERATOR VERTICAL 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, nl mental status, nl speech Results Results 24hrs Laboratory Tests Test 01/04/19 05:12 White Blood Count 14.4 H Red Blood Count 4.74 Hemoglobin 13.4 Hematocrit 43.0 Mean Corpuscular Volume 90.7 Mean Corpuscular Hemoglobin 28.3 L Mean Corpuscular Hemoglobin Concent 31.2 L Red Cell Distribution Width 13.5 Platelet Count 239 Mean Platelet Volume 10.4 Immature Granulocytes % 1.500 H Neutrophils % 82.8 H Lymphocytes % 5.6 L Monocytes % 10.0 Eosinophils % 0.0 Basophils % 0.1 Nucleated Red Blood Cells % 0.0 Immature Granulocytes # 0.210 H Neutrophils # 11.9 H Lymphocytes # 0.8 Monocytes # 1.4 H Eosinophils # 0.0 Basophils # 0.0 Nucleated Red Blood Cells # 0.0 Sodium Level 140 Potassium Level 4.1 Chloride Level 109 Carbon Dioxide Level 26 Anion Gap 5 Blood Urea Nitrogen 16 Creatinine 0.62 Est Glomerular Filtrat Rate mL/min > 60 Glucose Level 136 Calcium Level 8.9 Medications Medication Current Medications IV Flush (NS 3 ml) 3 ml PER PROTOCOL IV ; Start 12/30/18 at 20:30 Ondansetron HCl (Zofran Inj) 4 mg Q6H PRN IV NAUSEA/VOMITING Last administered on 12/31/18 03:22; Admin Dose 4 MG; Start 12/30/18 at 20:30 Acetaminophen (Tylenol Tab) 650 mg Q6H PRN PO .PAIN 1-3 OR TEMP Last administered on 01/04/19 09:14; Admin Dose 650 MG; Start 12/30/18 at 20:30 Acetaminophen/ Hydrocodone Bitart ([place] (5/325)) 1 tab Q6H PRN PO .PAIN 4-6 Last administered on 01/04/19 04:04; Admin Dose 1 TAB; Start 12/30/18 at 20:30 Docusate Sodium (Colace) 100 mg Q12H PRN PO .CONSTIPATION Last administered on 01/04/19 11:38; Admin Dose 100 MG; Start 12/30/18 at 20:30 Bisacodyl (Dulcolax) 5 mg DAILY PRN PO .CONSTIPATION; Start 12/30/18 at 20:30 Dexamethasone (Decadron) 4 mg Q6H IV Last administered on 01/04/19 09:15; Admin Dose 4 MG; Start 01/01/19 at 04:00 Lorazepam (Ativan) 0.5 mg BID PRN PO AGITATION Last administered on 01/03/19 00:11; Admin Dose 0.5 MG; Start 12/30/18 at 21:00 Hydroxychloroquine Sulfate (Plaquenil) 200 mg BID PO Last administered on 01/04/19 09:14; Admin Dose 200 MG; Start 12/30/18 at 21:00 Pantoprazole (Protonix Tab) 40 mg DAILY@06 PO Last administered on 01/04/19 06:06; Admin Dose 40 MG; Start 12/31/18 at 06:00 Morphine Sulfate (morphine) 4 mg Q4H PRN IV SEVERE PAIN LEVEL 7-10 Last administered on 01/04/19 11:38; Admin Dose 4 MG; Start 01/01/19 at 17:30 Diphenhydramine HCl (Benadryl) 25 mg Q6H PRN PO ITCHING Last administered on 4/8/19at 17:03; Admin Dose 25 MG; Start 01/01/19 at 17:00 Gabapentin (Neurontin) 100 mg TID PO Last administered on 01/04/19at 09:15; Admin Dose 100 MG; Start 01/03/19 at 21:00 MEDARDO JORDAN MD Jan 04, 2019 12:02
[2019-01-04 19:37] VITALS: BP 110/73; PULSE 67; RESP 18
[2019-01-04] MEDS: BISACODYL (EC) 5 MG TAB PO PRN (20:43)
[2019-01-05] MEDS: morphine 4 MG/ML VIAL IV PRN ×4 (01:40→20:07)
[2019-01-05 02:04] VITALS: BP 96/52; PULSE 60; RESP 18
[2019-01-05] MEDS: DEXAMETHASONE 4 MG/ML 1 ML INJ IV SCH ×4 (04:07→21:13)
[2019-01-05] MEDS: HYDROCODONE/APAP (5/325) TAB PO PRN (04:07)
[2019-01-05] MEDS: BISACODYL (EC) 5 MG TAB PO PRN (04:07)
[2019-01-05] MEDS: PANTOPRAZOLE (EC) 40 MG TAB PO SCH (05:39)
[2019-01-05 08:15] VITALS: BP 116/55; PULSE 69; RESP 20
[2019-01-05] MEDS: GABAPENTIN 100 MG CAP PO SCH ×3 (09:42→21:13)
[2019-01-05] MEDS: HYDROXYCHLOROQUINE 200 MG TAB PO SCH ×2 (09:42→21:12)
[2019-01-05 13:49] VITALS: BP 105/63; PULSE 78; RESP 20
[2019-01-05] MEDS ORDERED: DEC2 PO (16:11)
--- NOTE | 2019-01-05 16:18 | DS ---
Date/Time of Note Date/Time of Note DATE: 01/05/19 TIME: 16:13 Discharge Summary Admission/Discharge Info Admit Date/Time Dec 30, 2018 at 19:31 Discharge Date/Time Discharge Diagnosis 1. Severe lumbar stenosis at L4/5 and bilateral L4/5 neuroforaminal stenosis, radiculopathy, s/p L4 total and L5 partial laminectomy, bilateral L4/5 foraminotomies on 01/02/2019, stable, follow up with Dr. Govea and home PT 2. Rheumatoid arthritis, on plaquenil. outpatient rheumatology followup. 3. Obesity, weight loss 4. Dyslipidemia, statin per PCP Patient Condition: Stable Hospital Course This is a 48-year-old female with a past medical history of rheumatoid arthritis as well as lumbar spinal stenosis and 5 mm broad-based disc protrusion at L4-5 who presented to [facility] with complaints of worsening of back pain. Patient has been dealing with back pain for approximately 2 years. She states that over the last few days her pain has gotten worse and it has severely limited her ambulation. She is currently on prednisone as well as Plaquenil. I have not received with the transfer documentation the ED course at [facility] will be requesting these records. She denies any bowel or bladder incontinence. She denies any numbness in her perineal area. She reports that at [facility] she received Dilaudid but she had nausea and vomiting with that. Patient denies any current joint pains or any redness or swelling of her joints. MRI revealed Moderate to severe central canal stenosis at L4-L5, progressed compared to MRI L-spine 07/03/2017, and mild to moderate left and mild right neural foraminal stenosis at L4-L5. Case is reviewed by neurosurgeon Dr. Govea and discussed with the patient. Patient got L4 total and L5 partial laminectomy, bilateral L4/5 foraminotomies on 01/02/2019, without complications. Low back pain and radiculopathy are improving. Talked with staff who states patient is not walking well,. I will keep her inpatient today. Home health and walker is ordered. Home Meds Active Scripts Dexamethasone* (Decadron*) 2 Mg Tab, 2 MG PO TID for 3 Days, TAB decadron 2 mg po tid for 3 days, then 2 mg po bid for 3 days, then 2 mg po daily for 3 days, then 1 mg po daily for 3 days Prov:MEDARDO JORDAN MD 01/05/19 Naproxen* (Naprosyn*) 500 Mg Tablet, 500 MG PO BID PRN for PAIN AND/OR INFLAMMATION, #30 TAB Prov:ANGELO FAULKNER PA-C 06/10/18 Tramadol HCl (Tramadol HCl) 50 Mg Tablet, 50 MG PO Q6 PRN for PAIN, #20 TAB Prov:ANGELO FAULKNER PA-C 06/10/18 Hydrocodone/Acetaminophen ([place] 5-325 Tablet) 1 Each Tablet, 1 TAB PO Q6H PRN for PAIN, #7 TAB Prov:ABIGAIL HAMM PA-C 11/15/17 Baclofen* (Baclofen*) 10 Mg Tablet, 10 MG PO Q8 PRN for MUSCLE SPASMS, #60 TAB Prov:JO-ANN EDWARDS 07/07/17 Reported Medications [Tr] No Conflict Check 12/31/18 Estrogens Conjugated* (Premarin*) 0.625 Mg Tab, 0.625 MG PO DAILY, TAB 06/30/17 Hydroxychloroquine Sulfate* (Hydroxychloroquine Sulfate*) 200 Mg Tablet, 200 MG PO BID, TAB 06/30/17 Gabapentin* (Gabapentin*) 100 Mg Capsule, 100 MG PO TID, #90 CAP 06/30/17 Omeprazole* (Omeprazole*) 20 Mg Capsule.dr, 20 MG PO AC BREAKFAST, #30 CAP 06/30/17 Discontinued Reported Medications Prednisone* (Prednisone*) 5 Mg Tab, 5 MG PO DAILY, TAB 06/30/17 Methotrexate* (Methotrexate*) 2.5 Mg Tab, 2.5 MG PO MONWEDFRI, TAB 06/30/17 Discontinued Scripts valACYclovir HCl (Valtrex) 1,000 Mg Tablet, 1000 MG PO TID for 7 Days, TAB Prov:ANGELO FAULKNER PA-C 06/10/18 Oseltamivir Phosphate* (Tamiflu*) 75 Mg Capsule, 75 MG PO BID for 5 Days, #10 CAP Prov:ABIGAIL HAMM PA-C 11/15/17 Follow-up Plan PCP, Dr. Govea in one week Primary Care Provider [facility] Pending Labs Laboratory Tests Test 01/05/19 05:38 4/12/19 05:39 Sodium Level 142 mmol/L (135-144) Potassium Level 4.2 mmol/L (3.5-5.1) Chloride Level 107 mmol/L (97-110) Carbon Dioxide Level 27 mmol/L (21-31) Anion Gap 8 (5-13) Blood Urea Nitrogen 19 mg/dl (7-20) Creatinine 0.80 mg/dl (0.44-1.00) Est Glomerular Filtrat > 60 mL/min (>60) Rate mL/min Glucose Level 157 mg/dl (70-220) Calcium Level 9.4 mg/dl (8.4-10.2) White Blood Count 15.4 10^3/ul (4.8-10.8) Red Blood Count 5.02 10^6/ul (4.20-5.40) Hemoglobin 14.4 g/dl (12.0-16.0) Hematocrit 45.8 % (37.0-47.0) Mean Corpuscular Volume 91.2 fl (82.0-101.0) Mean Corpuscular Hemoglobin 28.7 pg (29.0-33.0) Mean Corpuscular 31.4 g/dl (32.0-37.0) Hemoglobin Concent Red Cell Distribution Width 13.4 % (11.5-14.5) Platelet Count 240 10^3/UL (140-415) Mean Platelet Volume 10.2 fl (7.4-10.4) Immature Granulocytes % 3.200 % (0.001-0.429) Neutrophils % 81.0 % (39.0-77.0) Lymphocytes % 7.4 % (15.0-51.0) Monocytes % 7.9 % (0.0-11.0) Eosinophils % 0.0 % (0.0-7.0) Basophils % 0.5 % (0.0-2.0) Nucleated Red Blood Cells % 0.0 /100WBC (0.0-0.0) Immature Granulocytes # 0.490 10^3/ul (0.0-0.031) Neutrophils # 12.5 10^3/ul (1.6-7.5) Lymphocytes # 1.1 10^3/ul (0.8-2.9) Monocytes # 1.2 10^3/ul (0.3-0.9) Eosinophils # 0.0 10^3/ul (0.0-0.5) Basophils # 0.1 10^3/ul (0.0-0.1) Nucleated Red Blood Cells # 0.0 10^3/ul (0.0-0.0) MEDARDO JORDAN MD Jan 05, 2019 16:18
--- NOTE | 2019-01-05 17:25 | CONS ---
Assessment/Plan Assessment/Plan Assessment/Plan (Daily) Doing better with resolution of preop back pain (not incisional) and radiculopathy. - Encourage ambulation - Should be OOB for as long as possible each day - cannot lie in bed all day - Will follow-up in clinic on Thursday 01/11 - lidoderm patches, flexeril for spasm Consultation Date/Type/Reason Admit Date/Time Dec 30, 2018 at 19:31 Initial Consult Date 12/31/18 Type of Consult Neurosurgery Date/Time of Note DATE: 01/05/19 TIME: 17:21 24 HR Interval Summary Free Text/Dictation POD3 L4/5 lami Doing better. Still with a great deal of incisional pain, but now walking. Very slow recovery compared to norm. Exam/Review of Systems Exam Vitals Vital Signs Date Temp Pulse Resp B/P (MAP) Pulse Ox O2 O2 Flow FiO2 Time Delivery Rate 01/05/19 97.9 78 20 105/63 93 13:49 (77) 01/03/19 Nasal 2.0 10:00 Cannula Intake and Output 01/04/19 01/04/19 01/05/19 1515:00 23:00 07:00 IntakeIntake Total 350 ml 350 ml BalanceBalance 350 ml 350 ml Exam 5/5 incision c/d/i Results Result Diagram: 01/05/19 0539 01/05/19 0538 Results 24hrs Laboratory Tests Test 01/05/19 05:38 01/05/19 05:39 Sodium Level 142 Potassium Level 4.2 Chloride Level 107 Carbon Dioxide Level 27 Anion Gap 8 Blood Urea Nitrogen 19 Creatinine 0.80 Est Glomerular Filtrat Rate mL/min > 60 Glucose Level 157 Calcium Level 9.4 White Blood Count 15.4 H Red Blood Count 5.02 Hemoglobin 14.4 Hematocrit 45.8 Mean Corpuscular Volume 91.2 Mean Corpuscular Hemoglobin 28.7 L Mean Corpuscular Hemoglobin Concent 31.4 L Red Cell Distribution Width 13.4 Platelet Count 240 Mean Platelet Volume 10.2 Immature Granulocytes % 3.200 H Neutrophils % 81.0 H Lymphocytes % 7.4 L Monocytes % 7.9 Eosinophils % 0.0 Basophils % 0.5 Nucleated Red Blood Cells % 0.0 Immature Granulocytes # 0.490 H Neutrophils # 12.5 H Lymphocytes # 1.1 Monocytes # 1.2 H Eosinophils # 0.0 Basophils # 0.1 Nucleated Red Blood Cells # 0.0 Medications Medication Current Medications IV Flush (NS 3 ml) 3 ml PER PROTOCOL IV ; Start 12/30/18 at 20:30 Ondansetron HCl (Zofran Inj) 4 mg Q6H PRN IV NAUSEA/VOMITING Last administered on 12/31/18 03:22; Admin Dose 4 MG; Start 12/30/18 at 20:30 Acetaminophen (Tylenol Tab) 650 mg Q6H PRN PO .PAIN 1-3 OR TEMP Last administered on 01/04/19 09:14; Admin Dose 650 MG; Start 12/30/18 at 20:30 Acetaminophen/ Hydrocodone Bitart ([place] (5/325)) 1 tab Q6H PRN PO .PAIN 4-6 Last administered on 01/05/19 04:07; Admin Dose 1 TAB; Start 12/30/18 at 20:30 Docusate Sodium (Colace) 100 mg Q12H PRN PO .CONSTIPATION Last administered on 01/04/19 11:38; Admin Dose 100 MG; Start 12/30/18 at 20:30 Bisacodyl (Dulcolax) 5 mg DAILY PRN PO .CONSTIPATION Last administered on 01/05/19 04:07; Admin Dose 5 MG; Start 12/30/18 at 20:30 Lorazepam (Ativan) 0.5 mg BID PRN PO AGITATION Last administered on 01/03/19 00:11; Admin Dose 0.5 MG; Start 12/30/18 at 21:00 Hydroxychloroquine Sulfate (Plaquenil) 200 mg BID PO Last administered on 01/05/19 09:42; Admin Dose 200 MG; Start 12/30/18 at 21:00 Pantoprazole (Protonix Tab) 40 mg DAILY@06 PO Last administered on 01/05/19 05:39; Admin Dose 40 MG; Start 12/31/18 at 06:00 Morphine Sulfate (morphine) 4 mg Q4H PRN IV SEVERE PAIN LEVEL 7-10 Last administered on 01/05/19 14:26; Admin Dose 4 MG; Start 01/01/19 at 17:30 Diphenhydramine HCl (Benadryl) 25 mg Q6H PRN PO ITCHING Last administered on 01/01/19 17:03; Admin Dose 25 MG; Start 01/01/19 at 17:00 Dexamethasone (Decadron) 2 mg Q6H IV Last administered on 01/05/19at 16:35; Admin Dose 2 MG; Start 01/04/19 at 16:00 Gabapentin (Neurontin) 200 mg TID PO Last administered on 01/05/19at 12:51; Admin Dose 200 MG; Start 01/04/19 at 13:00 BASSEM KANG MD Jan 05, 2019 17:25
[2019-01-05] MEDS: LIDOCAINE 5% PATCH TD SCH (17:46)
[2019-01-05 20:00] VITALS: BP 115/71; PULSE 83; RESP 18
[2019-01-05] MEDS: CYCLOBENZAPRINE 10 MG TAB PO SCH (21:12)
[2019-01-06] MEDS: morphine 4 MG/ML VIAL IV PRN ×3 (01:42→12:37)
[2019-01-06 02:09] VITALS: BP 110/69; PULSE 63; RESP 18
[2019-01-06] MEDS: DEXAMETHASONE 4 MG/ML 1 ML INJ IV SCH ×4 (05:10→21:56)
[2019-01-06] MEDS: PANTOPRAZOLE (EC) 40 MG TAB PO SCH (05:10)
[2019-01-06 08:00] VITALS: BP 101/64; PULSE 60; RESP 18
[2019-01-06] MEDS: GABAPENTIN 100 MG CAP PO SCH ×3 (08:58→20:38)
[2019-01-06] MEDS: CYCLOBENZAPRINE 10 MG TAB PO SCH ×3 (08:58→20:38)
[2019-01-06] MEDS: HYDROXYCHLOROQUINE 200 MG TAB PO SCH ×2 (08:59→20:39)
[2019-01-06] MEDS: LIDOCAINE 5% PATCH TD SCH (09:00)
--- NOTE | 2019-01-06 13:15 | PN ---
Date/Time of Note Date/Time of Note DATE: 01/06/19 TIME: :13 Assessment/Plan VTE Prophylaxis Risk score (from Nsg)>0 risk: 5 SCD applied (from Nsg): Yes Pharmacological prophylaxis: other Lines/Catheters IV Catheter Type (from Nrsg): [place] Assessment/Plan Hospital Course S: Discharge held yesterday because patient having weakness on ambulation. Seen by physical therapy this morning and awaiting for another session this afternoon. Still having occasional pain symptoms. O: VS - see below PE: Exam General: Obese woman lying in bed, HEENT: Atraumatic, normocephalic. The pupils are equal, round and reactive. Neck: Supple with full range of motion. No rigidity or meningismus CV: S1, S2 heard, nontender Lungs: Clear to auscultation bilaterally no crackles rales or wheezing Heart: Normal S1-S2, Regular rhythm and rate. No murmur, S3, or S4 Abdomen: Soft , nontender, nondistended , Neurologic: No focal deficits Assessment/Plan: 48 yo obese woman with history of rhematoid arthritis transferred from [facility] supposedly with report of acute leg weakness/numbness concerning for cauda equina but more likely acute flare of chronic lower back pain, status post neurosurgical repair on 01/02/19.. 1. Severe lumbar stenosis at L4/5 and bilateral L4/5 neuroforaminal stenosis, radiculopathy, s/p L4 total and L5 partial laminectomy, bilateral L4/5 foraminotomies on 01/02/2019, - decrease decadron, continue Neurontin, neurosurgeon added Flexeril as well -Continue PT 2. Rheumatoid arthritis, on plaquenil. outpatient rheumatology followup. 3. Obesity, weight loss 4. Dyslipidemia, will start statin and diet 5. Leukocytosis, steroid related 6. DVT prophylaxis: SCDs Dispo: Either today or in 24 hours once her physical therapy strength improves. insurance sales manager working on home health PT set up as well as front wheel walker delivery. Result Diagram: 01/06/19 0455 01/06/19 0455 Results 24hrs Laboratory Tests Test 01/06/19 04:55 White Blood Count 12.7 H Red Blood Count 4.74 Hemoglobin 13.6 Hematocrit 43.5 Mean Corpuscular Volume 91.8 Mean Corpuscular Hemoglobin 28.7 L Mean Corpuscular Hemoglobin Concent 31.3 L Red Cell Distribution Width 13.5 Platelet Count 201 Mean Platelet Volume 10.4 Immature Granulocytes % 5.700 H Neutrophils % Segmented Neutrophils % (Manual) 86 H Lymphocytes % Lymphocytes % (Manual) 7 L Reactive Lymphocytes % (Manual) 2 H Monocytes % Monocytes % (Manual) 5 Eosinophils % Basophils % Nucleated Red Blood Cells % 0.0 Immature Granulocytes # 0.720 H Neutrophils # Lymphocytes (Manual) 0.8 Lymphocytes # Reactive Lymphocytes # 0.2 H Monocytes # Monocytes # (Manual) 0.6 Eosinophils # Basophils # Nucleated Red Blood Cells # Platelet Estimate NORMAL Poikilocytosis 1+ Anisocytosis 1+ Microcytosis 1+ Sodium Level 142 Potassium Level 4.2 Chloride Level 110 Carbon Dioxide Level 29 Anion Gap 3 L Blood Urea Nitrogen 16 Creatinine 0.71 Est Glomerular Filtrat Rate mL/min > 60 Glucose Level 117 # Calcium Level 9.0 Exam/Review of Systems Exam Vitals Vital Signs Date Temp Pulse Resp B/P (MAP) Pulse Ox O2 O2 Flow FiO2 Time Delivery Rate 01/06/19 97.9 60 18 101/64 92 Room Air 08:00 (76) 01/03/19 2.0 10:00 Intake and Output 01/05/19 01/05/19 01/06/19 1515:00 23:00 07:00 IntakeIntake Total 480 ml 1000 ml BalanceBalance 480 ml 1000 ml Results Results 24hrs Laboratory Tests Test 01/06/19 04:55 White Blood Count 12.7 H Red Blood Count 4.74 Hemoglobin 13.6 Hematocrit 43.5 Mean Corpuscular Volume 91.8 Mean Corpuscular Hemoglobin 28.7 L Mean Corpuscular Hemoglobin Concent 31.3 L Red Cell Distribution Width 13.5 Platelet Count 201 Mean Platelet Volume 10.4 Immature Granulocytes % 5.700 H Neutrophils % Segmented Neutrophils % (Manual) 86 H Lymphocytes % Lymphocytes % (Manual) 7 L Reactive Lymphocytes % (Manual) 2 H Monocytes % Monocytes % (Manual) 5 Eosinophils % Basophils % Nucleated Red Blood Cells % 0.0 Immature Granulocytes # 0.720 H Neutrophils # Lymphocytes (Manual) 0.8 Lymphocytes # Reactive Lymphocytes # 0.2 H Monocytes # Monocytes # (Manual) 0.6 Eosinophils # Basophils # Nucleated Red Blood Cells # Platelet Estimate NORMAL Poikilocytosis 1+ Anisocytosis 1+ Microcytosis 1+ Sodium Level 142 Potassium Level 4.2 Chloride Level 110 Carbon Dioxide Level 29 Anion Gap 3 L Blood Urea Nitrogen 16 Creatinine 0.71 Est Glomerular Filtrat Rate mL/min > 60 Glucose Level 117 # Calcium Level 9.0 Medications Medication Current Medications IV Flush (NS 3 ml) 3 ml PER PROTOCOL IV ; Start 12/30/18 at 20:30 Ondansetron HCl (Zofran Inj) 4 mg Q6H PRN IV NAUSEA/VOMITING Last administered on 12/31/18 03:22; Admin Dose 4 MG; Start 12/30/18 at 20:30 Acetaminophen (Tylenol Tab) 650 mg Q6H PRN PO .PAIN 1-3 OR TEMP Last administered on 01/04/19 09:14; Admin Dose 650 MG; Start 12/30/18 at 20:30 Acetaminophen/ Hydrocodone Bitart ([place] (5/325)) 1 tab Q6H PRN PO .PAIN 4-6 Last administered on 01/05/19 04:07; Admin Dose 1 TAB; Start 12/30/18 at 20:30 Docusate Sodium (Colace) 100 mg Q12H PRN PO .CONSTIPATION Last administered on 01/04/19 11:38; Admin Dose 100 MG; Start 12/30/18 at 20:30 Bisacodyl (Dulcolax) 5 mg DAILY PRN PO .CONSTIPATION Last administered on 01/05/19 04:07; Admin Dose 5 MG; Start 12/30/18 at 20:30 Lorazepam (Ativan) 0.5 mg BID PRN PO AGITATION Last administered on 01/03/19 00:11; Admin Dose 0.5 MG; Start 12/30/18 at 21:00 Hydroxychloroquine Sulfate (Plaquenil) 200 mg BID PO Last administered on 01/06/19 08:59; Admin Dose 200 MG; Start 12/30/18 at 21:00 Pantoprazole (Protonix Tab) 40 mg DAILY@06 PO Last administered on 01/06/19 05:10; Admin Dose 40 MG; Start 12/31/18 at 06:00 Morphine Sulfate (morphine) 4 mg Q4H PRN IV SEVERE PAIN LEVEL 7-10 Last administered on 01/06/19 12:37; Admin Dose 4 MG; Start 01/01/19 at 17:30 Diphenhydramine HCl (Benadryl) 25 mg Q6H PRN PO ITCHING Last administered on 01/01/19 17:03; Admin Dose 25 MG; Start 01/01/19 at 17:00 Dexamethasone (Decadron) 2 mg Q6H IV Last administered on 01/06/19 09:49; Admin Dose 2 MG; Start 01/04/19 at 16:00 Gabapentin (Neurontin) 200 mg TID PO Last administered on 01/06/19 12:36; Admin Dose 200 MG; Start 01/04/19 at 13:00 Lidocaine (Lidoderm) 1 patch DAILY TD Last administered on 01/06/19 09:00; Admin Dose 1 PATCH; Start 01/05/19 at 17:30 Cyclobenzaprine HCl (Flexeril) 10 mg TID PO Last administered on 01/06/19 12:35; Admin Dose 10 MG; Start 01/05/19 at 21:00 KATIE RIVERA Jan 06, 2019 13:15
[2019-01-06] MEDS ORDERED: morphine 2 MG INJ IV PRN (13:30)
[2019-01-06 14:59] VITALS: BP 108/73; PULSE 68; RESP 19
[2019-01-06 20:00] VITALS: BP 103/62; PULSE 83; RESP 18
[2019-01-07 02:00] VITALS: BP 124/65; PULSE 63; RESP 18
[2019-01-07] MEDS: DEXAMETHASONE 4 MG/ML 1 ML INJ IV SCH ×2 (04:24→10:02)
[2019-01-07] MEDS: PANTOPRAZOLE (EC) 40 MG TAB PO SCH (06:14)
[2019-01-07] MEDS: HYDROCODONE/APAP (5/325) TAB PO PRN ×2 (06:14→12:19)
[2019-01-07 07:51] VITALS: BP 111/65; PULSE 66; RESP 18
[2019-01-07] MEDS: CYCLOBENZAPRINE 10 MG TAB PO SCH ×2 (09:29→12:56)
[2019-01-07] MEDS: LIDOCAINE 5% PATCH TD SCH (09:29)
[2019-01-07] MEDS: HYDROXYCHLOROQUINE 200 MG TAB PO SCH (09:29)
[2019-01-07] MEDS: GABAPENTIN 100 MG CAP PO SCH ×2 (09:29→12:58)
--- NOTE | 2019-01-07 13:15 | PDOCDIS ---
Discharge Instructions DIAGNOSIS Discharge Diagnosis 1. Severe lumbar stenosis at L4/5 and bilateral L4/5 neuroforaminal stenosis, radiculopathy, s/p L4 total and L5 partial laminectomy, bilateral L4/5 foraminotomies on 01/02/2019, stable, follow up with Dr. Govea and home PT 2. Rheumatoid arthritis, on plaquenil. outpatient rheumatology followup. 3. Obesity, weight loss 4. Dyslipidemia, statin per PCP CONDITION [id number] Patient Condition: [id number] Stable ACTIVITY: [id number] Activity Restrictions: [id number] Slowly Increase Activity Rest between Activity Avoid heavy lifting Do not operate Machinery Do not operate Power Tool Avoid Heavy Housework FOLLOW UP/APPOINTMENTS Follow-up Plan Please follow-up with PCP, and with neurosurgeon Dr. Govea in one week or sooner per their recommendations. KATIE RIVERA Jan 07, 2019 13:15
--- NOTE | 2019-01-07 13:18 | DS ---
Date/Time of Note Date/Time of Note DATE: 01/07/19 TIME: 13:16 Discharge Summary Admission/Discharge Info Admit Date/Time Dec 30, 2018 at 19:31 Discharge Date/Time Discharge Diagnosis 1. Severe lumbar stenosis at L4/5 and bilateral L4/5 neuroforaminal stenosis, radiculopathy, s/p L4 total and L5 partial laminectomy, bilateral L4/5 foraminotomies on 01/02/2019, stable, follow up with Dr. Govea and home PT 2. Rheumatoid arthritis, on plaquenil. outpatient rheumatology followup. 3. Obesity, weight loss 4. Dyslipidemia, statin per PCP Patient Condition: Stable Hx of Present Illness 48-year-old female with a past medical history of rheumatoid arthritis as well as lumbar spinal stenosis and 5 mm broad-based disc protrusion at L4-5 who presented to [facility] with complaints of worsening of back pain. Patient has been dealing with back pain for approximately 2 years. She states that over the last few days her pain has gotten worse and it has severly limited her ambulation. She is currently on prednisone as well as Plaquenil. I have not received with the transfer documentation the ED course at [facility] will be requesting these records. She denies any bowel or bladder incontinence. She denies any numbness in her perineal area. She reports that at [facility] she received Dilaudid but she had nausea and vomiting with that. Patient denies any current joint pains or any redness or swelling of her joints. Hospital Course Patient was admitted and had imaging study performed. MRI revealed Moderate to severe central canal stenosis at L4-L5, progressed compared to MRI L-spine 07/03/2017, and mild to moderate left and mild right neural foraminal stenosis at L4-L5. Case was reviewed by neurosurgeon Dr. Govea and discussed with the patient. Patient underwent neurosurgical procedure: L4 total and L5 partial laminectomy, bilateral L4/5 foraminotomies on 01/02/2019, without complications. Patient had some expected postop low back pain and radiculopathy, which are now improving. Patient continue with physical therapy afterwards, and given pain control medications, her symptoms slowly improved. She was cleared for discharge by the neurosurgery team with home health and walker ordered. Patient will go home with pain control medications and p.o. steroid Decadron taper. See below for full list of discharge medications. Home Meds Active Scripts Dexamethasone* (Decadron*) 2 Mg Tab, 2 MG PO TID for 3 Days, TAB decadron 2 mg po tid for 3 days, then 2 mg po bid for 3 days, then 2 mg po daily for 3 days, then 1 mg po daily for 3 days Prov:MEDARDO JORDAN MD 01/05/19 Naproxen* (Naprosyn*) 500 Mg Tablet, 500 MG PO BID PRN for PAIN AND/OR INFLAMMATION, #30 TAB Prov:ANGELO FAULKNER PA-C 06/10/18 Tramadol HCl (Tramadol HCl) 50 Mg Tablet, 50 MG PO Q6 PRN for PAIN, #20 TAB Prov:ANGELO FAULKNER PA-C 06/10/18 Hydrocodone/Acetaminophen ([place] 5-325 Tablet) 1 Each Tablet, 1 TAB PO Q6H PRN for PAIN, #7 TAB Prov:ABIGAIL HAMM PA-C 11/15/17 Baclofen* (Baclofen*) 10 Mg Tablet, 10 MG PO Q8 PRN for MUSCLE SPASMS, #60 TAB Prov:JO-ANN EDWARDS 07/07/17 Reported Medications [Tr] No Conflict Check 12/31/18 Estrogens Conjugated* (Premarin*) 0.625 Mg Tab, 0.625 MG PO DAILY, TAB 06/30/17 Hydroxychloroquine Sulfate* (Hydroxychloroquine Sulfate*) 200 Mg Tablet, 200 MG PO BID, TAB 06/30/17 Gabapentin* (Gabapentin*) 100 Mg Capsule, 100 MG PO TID, #90 CAP 06/30/17 Omeprazole* (Omeprazole*) 20 Mg Capsule.dr, 20 MG PO AC BREAKFAST, #30 CAP 06/30/17 Discontinued Reported Medications Prednisone* (Prednisone*) 5 Mg Tab, 5 MG PO DAILY, TAB 06/30/17 Methotrexate* (Methotrexate*) 2.5 Mg Tab, 2.5 MG PO MONWEDFRI, TAB 06/30/17 Discontinued Scripts valACYclovir HCl (Valtrex) 1,000 Mg Tablet, 1000 MG PO TID for 7 Days, TAB Prov:ANGELO FAULKNER PA-C 06/10/18 Oseltamivir Phosphate* (Tamiflu*) 75 Mg Capsule, 75 MG PO BID for 5 Days, #10 CAP Prov:ABIGAIL HAMM PA-C 11/15/17 Follow-up Plan Please follow-up with PCP, and with neurosurgeon Dr. Govea in one week or sooner per their recommendations. Primary Care Provider [facility] Time spent on discharge: > 30 minutes KATIE RIVERA Jan 07, 2019 13:18
[2019-01-07 14:00] VITALS: BP 116/69; PULSE 60; RESP 17
== END 2019-01-07 15:02 | disposition home health service (06) | DRG 517 ==
LOC: 6WM 19:31 → PP2 12-31 03:25
PROVIDERS: ADMIT Internal Medicine; ATTEND Hospitalist
PROC: 01NB0ZZ Release Lumbar Nerve, Open Approach (ICD-10-PCS; principal; 2019-01-02 16:00)
DX: M51.16 Intervertebral disc disorders with radiculopathy, lumbar region (principal); M48.062 Spinal stenosis, lumbar region with neurogenic claudication; M06.9 Rheumatoid arthritis, unspecified; E66.9 Obesity, unspecified; E78.5 Hyperlipidemia, unspecified; Z68.31 Body mass index [BMI] 31.0-31.9, adult
CPT/HCPCS: 71045; 72020; 72125; 72148; 80048; 80053; 80061; 83036; 83735; 84100; 84443; 84703; 85025; 85651; 86140; 97116; 97161; 97530; J0690; J1100; J1170; J1200; J2250; J2270; J2405; J2710; J3010; J7030